=== PATIENT | female | born 1940 | race Caucasian/White ===

== ENCOUNTER → 2016-05-31 | Outpatient (CLI) | payer MEDICARE, OTHER ==
--- NOTE | 2016-05-31 14:27 | MM ---
Reason for exam: clinical finding. Last mammogram was performed 3 years and 7 months ago. History: Family history of breast cancer in sister at age 72. Indicated problem(s): pain in both breasts. Physical Findings: Nurse did not find any significant physical abnormalities on exam. MG 3D Diag Mammo W/Cad AMRIK Bilateral CC and MLO view(s) were taken. Prior study comparison: November 06, 2012, mammogram, performed at [facility]. November 01, 2011, mammogram, performed at [facility]. There are scattered fibroglandular densities. Finding: There are typically benign round, linear calcifications in both breasts. There is no discrete abnormality. Right axillary pacemaker. These results were verbally communicated with the patient and result sheet given to the patient on 05/31/16. ASSESSMENT: Benign, BI-RAD 2 RECOMMENDATION: Routine screening mammogram of both breasts in 1 year. Manage on a clinical basis with regard to pain.
== END | disposition home or self-care (01) ==
LOC: RADMAMWWP 13:11
PROVIDERS: ATTEND Family Medicine
DX: N63 Unspecified lump in breast (principal)
CPT/HCPCS: G0204; G0279

== ENCOUNTER 2016-06-23 11:16 | Inpatient (IN) | payer MEDICARE, OTHER ==
--- NOTE | 2016-06-23 12:01 | ED ---
General Adult HPI - General Chief complaint: Chest Pain Stated complaint: CHEST PAIN, NUMBNESS Time Seen by Provider: 06/23/16 11:34 Source: patient, RN notes reviewed, old records reviewed Mode of arrival: wheelchair Limitations: no limitations - History of Present Illness Initial comments: This is a 76-year-old female to the ER for evaluation of weakness, dehydration, anorexia, nausea and vomiting. Intractable nausea and vomiting with dehydration , patient has had a complex medical history including recent colon resection with ostomy, patient states she's had persistent diarrhea ever since, no fevers but has not been feeling well. Was recently placed on potassium supplements but states that has not helped - Related Data Home Medications Medication Instructions Recorded Confirmed Meclizine HCl [Antivert] 25 mg PO DAILY PRN 10/21/14 01/16/16 Memantine [Namenda] 10 mg PO BID 10/21/14 06/23/16 Nitroglycerin Sl Tabs [Nitrostat] 0.4 mg SUBLINGUAL Q5M PRN 10/21/14 06/23/16 Omeprazole 20 mg PO DAILY 10/21/14 06/23/16 Aspirin [Adult Low Dose Aspirin EC] 81 mg PO DAILY 02/12/15 06/23/16 Docusate [Colace] 100 mg PO BID PRN 09/09/15 06/23/16 Citalopram Hydrobromide [CeleXA] 20 mg PO HS 12/15/15 06/23/16 Donepezil [Aricept] 10 mg PO HS 12/15/15 06/23/16 Levothyroxine Sodium [Synthroid] 25 mcg PO DAILY 12/15/15 06/23/16 Meloxicam [Mobic] 15 mg PO DAILY 12/15/15 01/16/16 ALPRAZolam [Xanax] 0.5 mg PO BID 06/23/16 06/23/16 Potassium Chloride [Klor-Con 20] 20 meq PO DAILY 06/23/16 06/23/16 Previous Rx's Medication Instructions Recorded Pregabalin [Lyrica] 200 mg PO BID #30 capsule 02/17/15 Atorvastatin [Lipitor] 40 mg PO HS #30 tab 01/18/16 Metoprolol Tartrate [Lopressor] 25 mg PO BID #60 tab 01/18/16 amLODIPine [Norvasc] 5 mg PO BID #60 tab 01/18/16 Allergies Allergy/AdvReac Type Severity Reaction Status Date / Time adhesive Allergy Rash/Hives Verified 06/23/16 11:21 fish derived Allergy Swelling Verified 06/23/16 11:21 Iodinated Contrast Media - Allergy Swelling Verified 06/23/16 11:21 Oral and [Iodinated Contrast Media - IV Dye] codeine AdvReac Nausea & Verified 06/23/16 11:21 Vomiting morphine AdvReac Nausea & Verified 06/23/16 11:21 Vomiting Review of Systems ROS Statement: Those systems with pertinent positive or pertinent negative responses have been documented in the HPI. ROS Other: All systems not noted in ROS Statement are negative. Past Medical History Past Medical History: Coronary Artery Disease (CAD), Chest Pain / Angina, CVA/ TIA, GERD/Reflux, Hyperlipidemia, Hypertension, Myocardial Infarction (PA), Osteoarthritis (OA), Thyroid Disorder Additional Past Medical History / Comment(s): Pt had a recent admission to [facility] on 12/15/15 with N/V for 4 days/dehydration/low potassium/low calcium/low magnesium. Other HX: SICK SINUS/ATRIAL FIB. 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 Last Myocardial Infarction Date:: 1999 History of Any Multi-Drug Resistant Organisms: None Reported Past Surgical History: Back Surgery, Bowel Resection, Heart Catheterization, Hysterectomy, Joint Replacement, Orthopedic Surgery, Pacemaker Additional Past Surgical History / Comment(s): 10/29/14 Total R hip arthroplasty , ORIF L hip, BILAERAL KNEE SCOPES, BILATERAL SHOULDER SURGERY, multiple back surgeries, gastric stapling. Past Anesthesia/Blood Transfusion Reactions: Postoperative Nausea & Vomiting ( PONV) Type of Cardiac Device: Permanent Pacemaker Device Placement Date:: Past Psychological History: Depression Additional Psychological History / Comment(s): Pt lives alone at [place]. She uses a walker on occasion and has an electric wheelchair if she feels she needs it. She drives. She has had [facility] home care in the past. Smoking Status: Current some day smoker Past Alcohol Use History: None Reported Additional Past Alcohol Use History / Comment(s): ONCE IN A WHILE WILL TAKE A PUFF OR TWO WHEN WITH FRIENDS. Past Drug Use History: None Reported - Past Family History Father Family Medical History: Cancer Mother Family Medical History: Coronary Artery Disease (CAD) General Exam Limitations: no limitations General appearance: alert, in no apparent distress Head exam: Present: atraumatic, normocephalic, normal inspection Eye exam: Present: normal appearance, PERRL, EOMI. Absent: scleral icterus, conjunctival injection, periorbital swelling ENT exam: Present: normal exam, mucous membranes moist Neck exam: Present: normal inspection. Absent: tenderness, meningismus, lymphadenopathy Respiratory exam: Present: normal lung sounds bilaterally. Absent: respiratory distress, wheezes, rales, rhonchi, stridor Cardiovascular Exam: Present: regular rate, normal rhythm, normal heart sounds. Absent: systolic murmur, diastolic murmur, rubs, gallop, clicks GI/Abdominal exam: Present: soft, normal bowel sounds. Absent: distended, tenderness, guarding, rebound, rigid Extremities exam: Present: normal inspection, full ROM, normal capillary refill. Absent: tenderness, pedal edema, joint swelling, calf tenderness Back exam: Present: normal inspection Neurological exam: Present: alert, oriented X3, CN II-XII intact Psychiatric exam: Present: normal affect, normal mood Skin exam: Present: warm, dry, intact, normal color. Absent: rash Course Vital Signs 06/23/16 06/23/16 11:18 11:50 Temperature 97.4 F L Pulse Rate 61 Respiratory 16 Rate Blood Pressure 124/60 O2 Sat by Pulse 95 99 Oximetry - Reevaluation(s) Reevaluation #1: 06/23/16 13:25 Patient still feeling weak with occasional active vomiting EKG Findings - EKG Comments: EKG Findings:: EKG shows a paced rhythm rate of 89, TN 166, QRS 474 Medical Decision Making - Medical Decision Making 76 female here with intractable nausea vomiting, severe protein calorie malnutrition, severe hypomagnesemia, low-sodium despite soy replacement, patient be admitted for surgical evaluation, monitoring of intake. Monitoring of electrolytes - Lab Data Result diagrams: 06/23/16 12:12 06/23/16 12:12 Lab Results 06/23/16 06/23/1606/23/17 Range/Units 12:12 12:12 12:12 WBC 9.4 (3.8-10.6) k/uL RBC 4.39 (3.80-5.40) m/uL Hgb 12.4 (11.4-16.0) gm/dL Hct 38.3 (34.0-46.0) % MCV 87.2 (80.0-100.0) fL MCH 28.2 (25.0-35.0) pg MCHC 32.3 (31.0-37.0) g/dL RDW 16.5 H (11.5-15.5) % Plt Count 251 (150-450) k/uL Neutrophils % 66 % Lymphocytes % 25 % Monocytes % 6 % Eosinophils % 2 % Basophils % 1 % Neutrophils # 6.2 (1.3-7.7) k/uL Lymphocytes # 2.4 (1.0-4.8) k/uL Monocytes # 0.5 (0-1.0) k/uL Eosinophils # 0.2 (0-0.7) k/uL Basophils # 0.1 (0-0.2) k/uL Hypochromasia Slight Anisocytosis Slight PT (9.0-12.0) sec INR (<1.1) APTT (22.0-30.0) sec Sodium 144 (137-145) mmol/L Potassium 3.7 (3.5-5.1) mmol/L Chloride 113 H (98-107) mmol/L Carbon Dioxide 17 L (22-30) mmol/L Anion Gap 14 mmol/L BUN 9 (7-17) mg/dL Creatinine 0.70 (0.52-1.04) mg/dL Est GFR (MDRD) Af Amer >60 (>60 ml/min/1.73 sqM) Est GFR (MDRD) Non-Af >60 (>60 ml/min/1.73 sqM) Glucose 102 H (74-99) mg/dL Calcium 6.4 L* (8.4-10.2) mg/dL Phosphorus (2.5-4.5) mg/dL Magnesium <0.4 L* (1.6-2.3) mg/dL Total Bilirubin 0.6 (0.2-1.3) mg/dL AST 25 (14-36) U/L ALT 20 (9-52) U/L Alkaline Phosphatase 70 (38-126) U/L Total Creatine Kinase 253 H (30-135) U/L CK-MB (CK-2) 2.5 H* (0.0-2.4) ng/mL CK-MB (CK-2) Rel Index 1.0 Troponin I <0.012 (0.000-0.034) ng/mL Total Protein 6.6 (6.3-8.2) g/dL Albumin 3.6 (3.5-5.0) g/dL Lipase 77 (23-300) U/L 06/23/16 06/23/16 Range/Units 12:12 12:12 WBC (3.8-10.6) k/uL RBC (3.80-5.40) m/uL Hgb (11.4-16.0) gm/dL Hct (34.0-46.0) % MCV (80.0-100.0) fL MCH (25.0-35.0) pg MCHC (31.0-37.0) g/dL RDW (11.5-15.5) % Plt Count (150-450) k/uL Neutrophils % % Lymphocytes % % Monocytes % % Eosinophils % % Basophils % % Neutrophils # (1.3-7.7) k/uL Lymphocytes # (1.0-4.8) k/uL Monocytes # (0-1.0) k/uL Eosinophils # (0-0.7) k/uL Basophils # (0-0.2) k/uL Hypochromasia Anisocytosis PT 12.5 H (9.0-12.0) sec INR 1.3 (<1.1) APTT 24.4 (22.0-30.0) sec Sodium (137-145) mmol/L Potassium (3.5-5.1) mmol/L Chloride (98-107) mmol/L Carbon Dioxide (22-30) mmol/L Anion Gap mmol/L BUN (7-17) mg/dL Creatinine (0.52-1.04) mg/dL Est GFR (MDRD) Af Amer (>60 ml/min/1.73 sqM) Est GFR (MDRD) Non-Af (>60 ml/min/1.73 sqM) Glucose (74-99) mg/dL Calcium (8.4-10.2) mg/dL Phosphorus 4.2 (2.5-4.5) mg/dL Magnesium (1.6-2.3) mg/dL Total Bilirubin (0.2-1.3) mg/dL AST (14-36) U/L ALT (9-52) U/L Alkaline Phosphatase (38-126) U/L Total Creatine Kinase (30-135) U/L CK-MB (CK-2) (0.0-2.4) ng/mL CK-MB (CK-2) Rel Index Troponin I (0.000-0.034) ng/mL Total Protein (6.3-8.2) g/dL Albumin (3.5-5.0) g/dL Lipase (23-300) U/L Disposition Clinical Impression: Dehydration, Hypomagnesemia, Weakness Disposition: ADMITTED IP TO THIS [facility] Condition: Fair Referrals: Geraldo Santiago DO [Primary Care Provider] - 1-2 days
[2016-06-23 12:36] LABS: ALT 20 U/L (9-52); AST 25 U/L (14-36); Alkaline Phosphatase 70 U/L (38-126); Anion Gap 14 mmol/L; Blood Urea Nitrogen 9 mg/dL (7-17); Carbon Dioxide 17 mmol/L (22-30); Chloride 113 mmol/L (98-107); Glucose 102 mg/dL (74-99); Non-African American GFR(MDRD) >60 (>60 ml/min/1.73 sqM); Potassium 3.7 mmol/L (3.5-5.1); Sodium 144 mmol/L (137-145); Total Bilirubin 0.6 mg/dL (0.2-1.3); Total Protein 6.6 g/dL (6.3-8.2)
[2016-06-23] MEDS ORDERED: PANTOPRAZOLE 40 MG/10 ML VIAL IVP STA (12:38)
[2016-06-23] MEDS ORDERED: DICYCLOMINE 10 MG/ML 2 ML AMP IM STA (12:38)
[2016-06-23] MEDS ORDERED: ONDANSETRON 4 MG/2 ML VIAL IVP STA (12:38)
[2016-06-23 12:45] LABS: Creatine Kinase 253 U/L (30-135)
[2016-06-23 12:52] LABS: INR 1.3 (<1.1); Partial Thromboplastin Time 24.4 sec (22.0-30.0); Prothrombin Time 12.5 sec (9.0-12.0)
[2016-06-23 12:57] LABS: Anisocytosis Slight; Basophils # (A) 0.1 k/uL (0-0.2); Basophils % (A) 1 %; CH 27.6; CHCM 31.8; Eosinophils # (A) 0.2 k/uL (0-0.7); Eosinophils % (A) 2 %; HCT 38.3 % (34.0-46.0); HDW 2.91; HGB 12.4 gm/dL (11.4-16.0); Hypochromasia Slight; Luc # (Auto) 0.13; Luc % (Auto) 1; Lymphocytes # (A) 2.4 k/uL (1.0-4.8); Lymphocytes % (A) 25 %; MCH 28.2 pg (25.0-35.0); MCHC 32.3 g/dL (31.0-37.0); MCV 87.2 fL (80.0-100.0); Monocytes # (A) 0.5 k/uL (0-1.0); Monocytes % (A) 6 %; Neutrophils # (A) 6.2 k/uL (1.3-7.7); Neutrophils % (A) 66 %; RBC 4.39 m/uL (3.80-5.40); RDW 16.5 % (11.5-15.5); WBC 9.4 k/uL (3.8-10.6); WBC (Perox) 9.42
[2016-06-23 12:58] LABS: Troponin I <0.012 ng/mL (0.000-0.034)
[2016-06-23 13:04] LABS: Calcium 6.4 mg/dL (8.4-10.2)
[2016-06-23 13:05] LABS: Magnesium <0.4 mg/dL (1.6-2.3)
[2016-06-23 13:09] LABS: Creatine Kinase MB 2.5 ng/mL (0.0-2.4)
[2016-06-23] MEDS ORDERED: SODIUM CHLORIDE 0.9% 1,000 ML IV ONE (13:23)
--- NOTE | 2016-06-23 13:25 | XR ---
EXAMINATION TYPE: XR abdomen acute w cxr DATE OF EXAM: 06/23/2016 12:55 PM COMPARISON: NONE HISTORY: Nausea vomiting upper abdominal pain TECHNIQUE: Abdomen is examined with a frontal chest upright and supine views abdomen. This compared w [facility] 01/16/2016 FINDINGS: Pacemaker overlies the right chest. Heart size is normal. Pulmonary vasculature is normal. Lungs are clear. No free air is under the diaphragm Postsurgical changes are in the epigastric region. Postsurgical changes are within the lower lumbar s pine Normal colonic bowel gas is present. Right hip prosthesis is present. IMPRESSION: 1. No acute process.
[2016-06-23] MEDS: MAGNESIUM SULFATE-D5W PMX 1 GM in DEXTROSE/WATER 1 100ML.BAG IVPB SCH ×4 (13:40→18:39)
[2016-06-23] MEDS ORDERED: MECLIZINE 25 MG TAB PO PRN (17:20)
[2016-06-23] MEDS ORDERED: NITROGLYCERIN SL TABS 0.4 MG TAB SUBLINGUAL PRN (17:26)
[2016-06-23] MEDS: ONDANSETRON 4 MG/2 ML VIAL IVP PRN (18:49)
[2016-06-23] MEDS: amLODIPine 5 MG TAB PO SCH (20:43)
[2016-06-23] MEDS: METOPROLOL TARTRATE 25 MG TAB PO SCH (20:44)
[2016-06-23] MEDS: ATORVASTATIN 40 MG TAB PO SCH (20:44)
[2016-06-23] MEDS: PREGABALIN 100 MG CAP PO SCH (20:44)
[2016-06-23] MEDS: MEMANTINE 10 MG TAB PO SCH (20:44)
[2016-06-23] MEDS: DONEPEZIL 10 MG TAB PO SCH (20:44)
[2016-06-23] MEDS: ALPRAZolam 0.5 MG TAB PO PRN (23:48)
[2016-06-24] MEDS ORDERED: Magnesium Replacement Protocol 1 EACH MISC MISCELLANE PRN ×2 (06:05→08:45)
[2016-06-24 06:24] LABS: Anisocytosis Slight; Basophils # (A) 0.1 k/uL (0-0.2); Basophils % (A) 1 %; CH 27.2; CHCM 30.4; Eosinophils # (A) 0.3 k/uL (0-0.7); Eosinophils % (A) 5 %; HCT 33.2 % (34.0-46.0); HGB 10.4 gm/dL (11.4-16.0); Hypochromasia Moderate; Luc # (Auto) 0.13; Luc % (Auto) 2; Lymphocytes # (A) 1.6 k/uL (1.0-4.8); Lymphocytes % (A) 28 %; MCHC 31.2 g/dL (31.0-37.0); MCV 89.8 fL (80.0-100.0); Mean Platelet Volume 7.3; Monocytes # (A) 0.3 k/uL (0-1.0); Monocytes % (A) 5 %; Neutrophils # (A) 3.5 k/uL (1.3-7.7); Neutrophils % (A) 59 %; RDW 16.7 % (11.5-15.5); WBC 5.9 k/uL (3.8-10.6); WBC (Perox) 5.98
[2016-06-24] MEDS: LEVOTHYROXINE 25 MCG TAB PO SCH (06:29)
[2016-06-24] MEDS: PANTOPRAZOLE 40 MG TABLET PO SCH (06:29)
[2016-06-24 06:36] LABS: ALT 17 U/L (9-52); AST 18 U/L (14-36); Alkaline Phosphatase 81 U/L (38-126); Anion Gap 10 mmol/L; Blood Urea Nitrogen 7 mg/dL (7-17); Carbon Dioxide 19 mmol/L (22-30); Chloride 113 mmol/L (98-107); Glucose 92 mg/dL (74-99); Magnesium 1.5 mg/dL (1.6-2.3); Non-African American GFR(MDRD) >60 (>60 ml/min/1.73 sqM); Phosphorous 3.1 mg/dL (2.5-4.5); Potassium 3.4 mmol/L (3.5-5.1); Sodium 142 mmol/L (137-145); Total Bilirubin 0.6 mg/dL (0.2-1.3); Total Protein 5.8 g/dL (6.3-8.2)
[2016-06-24 06:51] LABS: Calcium 6.5 mg/dL (8.4-10.2)
[2016-06-24] MEDS: MAGNESIUM SULFATE-D5W PMX 1 GM in DEXTROSE/WATER 1 100ML.BAG IVPB SCH ×4 (06:58→16:38)
[2016-06-24] MEDS: ONDANSETRON 4 MG/2 ML VIAL IVP PRN ×2 (09:04→14:01)
[2016-06-24] MEDS: MEMANTINE 10 MG TAB PO SCH ×2 (12:02→20:32)
[2016-06-24] MEDS: MELOXICAM 7.5 MG TAB PO SCH (12:02)
[2016-06-24] MEDS: amLODIPine 5 MG TAB PO SCH ×2 (12:03→20:32)
[2016-06-24] MEDS: METOPROLOL TARTRATE 25 MG TAB PO SCH ×2 (12:03→20:32)
[2016-06-24] MEDS: POTASSIUM CHLORIDE ER 20 MEQ TAB.ER PO SCH (12:03)
[2016-06-24] MEDS: ASPIRIN 81 MG CHEW PO SCH (12:04)
[2016-06-24] MEDS: PREGABALIN 100 MG CAP PO SCH ×2 (12:08→20:34)
[2016-06-24] MEDS: CALCIUM CARB-VIT D 500MG-200UN 1 EACH TAB PO SCH ×2 (12:14→16:40)
--- NOTE | 2016-06-24 12:57 | P.HPIM ---
History of Present Illness H&P Date: 06/24/16 Chief Complaint: Chest pain Patient is a 75-year-old female, patient of Dr. Geraldo Santiago in outpatient setting, with past medical history significant for coronary artery disease, CVA, GERD, hyperlipidemia, hypertension, myocardial infarction, osteoarthritis, sick sinus rhythm status post permanent pacemaker, hypothyroidism, and recent colon resection in March by Dr. Velasco. Patient presented to the emergency department with complaints of intractable nausea, vomiting and diarrhea. No history of fevers. Per patient, symptoms have been present since she had her colon resection. Patient reports weight loss. Abdominal x-ray with no evidence of acute process. Admission labs with evidence of severe hypomagnesemia and dehydration. Patient was admitted to the selective care unit for electrolyte replacement and IV hydration. Consult was requested for Dr. Velasco for general surgery. Upon examination, patient reports mild abdominal pain. Patient states she vomited this morning after she ate half a pancake. Patient reports 2 episodes of light brown loose stool this morning. Currently denies chest pain. 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 Last Myocardial Infarction Date:: 1999 History of Any Multi-Drug Resistant Organisms: None Reported Past Surgical History: Back Surgery, Bariatric Surgery, Bowel Resection, Cholecystectomy, Heart Catheterization, Hysterectomy, Joint Replacement, Orthopedic Surgery, Pacemaker Additional Past Surgical History / Comment(s): 10/29/14 Total R hip arthroplasty , ORIF L hip, BILATERAL KNEE SCOPES, BILATERAL SHOULDER SURGERY, multiple back surgeries, gastric stapling, 01/2016 cardiac cath-normal. Past Anesthesia/Blood Transfusion Reactions: Postoperative Nausea & Vomiting ( PONV) Type of Cardiac Device: Permanent Pacemaker Device Placement Date:: Past Psychological History: Depression Additional Psychological History / Comment(s): Pt lives alone at [place]. She uses a walker on occasion and has an electric wheelchair if she feels she needs it. She drives. She has had [facility] home care in the past. Her grandson , Pankaj assists her and manages her medications. Smoking Status: Light tobacco smoker Past Alcohol Use History: None Reported Additional Past Alcohol Use History / Comment(s): ONCE IN A WHILE WILL TAKE A PUFF OR TWO WHEN WITH FRIENDS. Past Drug Use History: None Reported - Past Family History Father Family Medical History: Cancer Additional Family Medical History / Comment(s): Father had sarcoma. He at the age of 70yrs. Mother Family Medical History: Coronary Artery Disease (CAD) Additional Family Medical History / Comment(s): Mother at the age of 81 yrs. Medications and Allergies Home Medications Medication Instructions Recorded Confirmed Type Meclizine HCl [Antivert] 25 mg PO DAILY PRN 10/21/14 06/23/16 History Memantine [Namenda] 10 mg PO BID 10/21/14 06/23/16 History Nitroglycerin Sl Tabs [Nitrostat] 0.4 mg SUBLINGUAL Q5M PRN 10/21/14 06/23/16 History Omeprazole 20 mg PO DAILY 10/21/14 06/23/16 History Aspirin [Adult Low Dose Aspirin EC] 81 mg PO DAILY 02/12/15 06/23/16 History Docusate [Colace] 100 mg PO BID PRN 09/09/15 06/23/16 History Donepezil [Aricept] 10 mg PO HS 12/15/15 06/23/16 History Levothyroxine Sodium [Synthroid] 25 mcg PO DAILY 12/15/15 06/23/16 History Meloxicam [Mobic] 15 mg PO DAILY 12/15/15 01/16/16 History ALPRAZolam [Xanax] 0.5 mg PO BID 06/23/16 06/23/16 History Potassium Chloride [Klor-Con 20] 20 meq PO DAILY 06/23/16 06/23/16 History Allergies Allergy/AdvReac Type Severity Reaction Status Date / Time adhesive Allergy Rash/Hives Verified 06/23/16 13:29 fish derived Allergy Swelling Verified 06/23/16 13:29 Iodinated Contrast Media - Allergy Swelling Verified 06/23/16 13:29 Oral and [Iodinated Contrast Media - IV Dye] codeine AdvReac Nausea & Verified 06/23/16 13:29 Vomiting morphine AdvReac Nausea & Verified 06/23/16 13:29 Vomiting Physical Exam Vitals: Vital Signs Temp Pulse Pulse Resp BP BP Pulse Ox 06/24/16 08:00 60 16 142/71 97 06/24/16 04:00 97.4 F L 62 18 101/60 97 06/24/16 00:00 98.4 F 64 18 128/64 97 06/23/16 20:00 98.1 F 62 18 112/66 99 06/23/16 16:00 97.6 F 62 18 116/63 98 06/23/16 13:30 87 20 130/87 97 06/23/16 13:20 60 16 137/77 98 Intake and Output 06/23/16 06/24/16 06/24/16 22:59 06:59 14:59 Intake Total 400 360 Balance 400 360 Intake: IV 400 Sodium Chloride 0.9% 1, 400 000 ml @ 100 mls/hr IV . Q10H ONE Rx#:[id number] Oral 360 Other: Voiding Method Diaper Diaper Diaper # Voids 2 1 Weight 66.2 kg 66.2 kg Patient Weight 06/25/16 06:59 Weight 66.2 kg GENERAL: Pt awake and alert, nontoxic, in no acute distress. HEAD: Atraumatic, normocephalic. EYES: Pupils equal, round, and reactive to light, extraocular movements intact, sclera anicteric, conjunctiva are normal. ENT: Moist mucous membranes. NECK:Supple without lymphadenopathy or JVD. LUNGS: Breath sounds clear to auscultation bilaterally. No wheezes, rales, or rhonchi. HEART: Heart S1, S2, no S3 or S4. Regular rate and rhythm. No murmurs, rubs or gallops. ABDOMEN: Soft, mild diffuse tenderness, mildly distended, normoactive bowel sounds. No guarding, no rebound. EXTREMITIES: 2+ peripheral pulses. No edema. No calf tenderness. NEUROLOGICAL: Pt oriented x 3. Cranial nerves II through XII grossly intact. Strength and sensation grossly intact. PSYCH: Normal mood, normal affect. SKIN: Warm, dry, intact. Normal turgor. No rashes or lesions. Results CBC & Chem 7: 06/24/16 06:02 06/24/16 06:02 Labs: Abnormal Lab Results - Last 24 Hours (Table) 06/23/16 06/23/16 06/23/16 Range/Units 12:12 12:12 12:12 RBC (3.80-5.40) m/uL Hgb (11.4-16.0) gm/dL Hct (34.0-46.0) % RDW 16.5 H (11.5-15.5) % PT (9.0-12.0) sec Potassium (3.5-5.1) mmol/L Chloride 113 H (98-107) mmol/L Carbon Dioxide 17 L (22-30) mmol/L Glucose 102 H (74-99) mg/dL Calcium 6.4 L* (8.4-10.2) mg/dL Magnesium <0.4 L* (1.6-2.3) mg/dL Total Creatine Kinase 253 H (30-135) U/L CK-MB (CK-2) 2.5 H* (0.0-2.4) ng/mL Total Protein (6.3-8.2) g/dL Albumin (3.5-5.0) g/dL 06/23/16 06/24/16 06/24/16 Range/Units 12:12 06:02 06:02 RBC 3.70 L (3.80-5.40) m/uL Hgb 10.4 L (11.4-16.0) gm/dL Hct 33.2 L (34.0-46.0) % RDW 16.7 H (11.5-15.5) % PT 12.5 H (9.0-12.0) sec Potassium 3.4 L (3.5-5.1) mmol/L Chloride 113 H (98-107) mmol/L Carbon Dioxide 19 L (22-30) mmol/L Glucose (74-99) mg/dL Calcium 6.5 L* (8.4-10.2) mg/dL Magnesium 1.5 L (1.6-2.3) mg/dL Total Creatine Kinase (30-135) U/L CK-MB (CK-2) (0.0-2.4) ng/mL Total Protein 5.8 L (6.3-8.2) g/dL Albumin 2.9 L (3.5-5.0) g/dL Abdominal x-ray: report reviewed Thrombosis Risk Factor Assmnt - DVT/VTE Prophylaxis DVT/VTE Prophylaxis: Pharmacologic Prophylaxis ordered - Choose All That Apply Any of the Below Risk Factors Present?: Yes Other Risk Factors: Yes Each Risk Factor Represents 3 Points: Age 75 years or older Other congenital or acquired thrombophilia - If yes, enter type in comment: No Thrombosis Risk Factor Assessment Total Risk Factor Score: 3 Thrombosis Risk Factor Assessment Level: Moderate Risk Assessment and Plan Plan: Impression and plan: 1. Dehydration suspect secondary to intractable nausea, vomiting, and diarrhea with history of colon resection. 2. Severe hypomagnesemia, present on admission, improved. 4. Hypocalcemia, present on admission. 5. Hypertension. 6. Coronary artery disease. 7. GERD. 8. Hyperlipidemia. 9. Poly-osteoarthritis. 10. Hypothyroidism. 11. History of sick sinus syndrome and paroxysmal atrial fibrillation status post implantation of permanent pacemaker. 12. History of nicotine dependence. 13. Hypothyroidism. 14. History of dementia, onset unknown. 15. Severe protein calorie malnutrition. Continue to monitor patient. Continue IV hydration. Low fiber diet as tolerated. Replace electrolytes per protocol. Home medications of been reviewed and resumed. Continue GI and DVT prophylaxis. Increase activity as tolerated. Surgical consult for Dr. Velasco requested, recommendations pending. Consult dietitian for nutritional support. Repeat CBC, BMP, magnesium in a.m. The above impression and plan have been discussed and directed by Dr. Santiago. Norma GIBBONS acting as scribe for Dr. Santiago.
--- NOTE | 2016-06-24 13:10 | P.GSCN ---
History of Present Illness Consult date: 06/24/16 Reason for Consult: Nausea vomiting diarrhea Requesting physician: Geraldo Santiago History of present illness: The patient is well known to me. 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 Has also had a past history of gastrointestinal bypass for weight loss. Developed the diarrhea post surgery. Was the treated aggressively as an outpatient including antidiarrheal agents lots of fluids potassium supplements O both by Dr. Santiago and myself. She states over the last week and a half or so she's had nausea or vomiting and has taken and very little food. Been progressively losing weight. She presented to the emergency room and had evidence of dehydration. In view of continued symptoms dehydration she was admitted for further management. She states she has about 5 or 6 bowel movements a day. Not sure if she is used the antidiarrheal agents namely Lomotil on a regular basis. No blood per rectum. BUN and creatinine were normal on admission. Past history. As above. Gastrointestinal bypass. Right colectomy. Multiple back surgeries and fusions and hip and knee surgeries. History of coronary artery disease and OK angioplasties. He of TIAs memory degeneration. Also history of hypertension and arrhythmia status post post pacemaker insertion. History of GERD hypothyroidism depression. Anxiety disorder. Social history. Positive for smoking although she states now she smoked very little. Denies ethanol abuse. Family history well-documented. Systems review as above. Weight loss. Generalized weakness. Dizziness. No urinary symptoms. Some mild partial anal incontinence long-term. Lower extremity weakness and partial foot drop. ALLERGIES listed including adhesive morphine etc. On examination the patient is well-built well-nourished on the patient side at the 66.2 kg BMI of 25.1. Clinically seemed mildly dehydrated. Head and neck otherwise normal. No mass or lymphadenopathy. Heart regular rhythm no murmurs. Abdomen shows a well-healed midline and right transverse scars. Has what feels like a seroma in the midportion of the transverse scar in the right side. No mass or organomegaly no tenderness no guarding or rebound is noted. Laboratory studies reviewed. Hemoglobin is normal as is her WBC. Potassium is 3.4. Magnesium and calcium on the low side. Abdominal x-ray shows a nonspecific bowel gas pattern. No obstruction. No dilated loops of bowel. No free air. 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 Nausea vomiting of doubt obstructive with Normal abdominal films. Dehydration. Malnutrition with weight loss. Recommendation continue IV fluids. Low residue diet. May benefit from anti- diarrheal agent. We will obtain Upper GI small bowel series. We will continue to follow with you. Past Medical History Past Medical History: Coronary Artery Disease (CAD), Chest Pain / Angina, CVA/ TIA, GERD/Reflux, Hyperlipidemia, Hypertension, Myocardial Infarction (OK), Osteoarthritis (OA), Thyroid Disorder Additional Past Medical History / Comment(s): SICK SINUS/ATRIAL FIB, INCONTINENCE: BOWEL/BLADDER & DROP FOOT ON left FROM NERVE DAMAGE POST BACK SURGERY, CVA X 2 WITH alittle short term memory problem, neuropathy R foot, OK in 1999, hypothryroidism, UTI, bronchitis, generalized arthritis, R/L shoulder pain, low back pain, spinal stenosis, carries "dementia gene", L hip fracture with surgery, R ear infections. Last Myocardial Infarction Date:: 1999 History of Any Multi-Drug Resistant Organisms: None Reported Past Surgical History: Back Surgery, Bariatric Surgery, Bowel Resection, Cholecystectomy, Heart Catheterization, Hysterectomy, Joint Replacement, Orthopedic Surgery, Pacemaker Additional Past Surgical History / Comment(s): 10/29/14 Total R hip arthroplasty , ORIF L hip, BILATERAL KNEE SCOPES, BILATERAL SHOULDER SURGERY, multiple back surgeries, gastric stapling, 01/2016 cardiac cath-normal. Past Anesthesia/Blood Transfusion Reactions: Postoperative Nausea & Vomiting ( PONV) Type of Cardiac Device: Permanent Pacemaker Device Placement Date:: Past Psychological History: Depression Additional Psychological History / Comment(s): Pt lives alone at [place]. She uses a walker on occasion and has an electric wheelchair if she feels she needs it. She drives. She has had [facility] home care in the past. Her grandson , Pankaj assists her and manages her medications. Smoking Status: Light tobacco smoker Past Alcohol Use History: None Reported Additional Past Alcohol Use History / Comment(s): ONCE IN A WHILE WILL TAKE A PUFF OR TWO WHEN WITH FRIENDS. Past Drug Use History: None Reported - Past Family History Father Family Medical History: Cancer Additional Family Medical History / Comment(s): Father had sarcoma. He at the age of 70yrs. Mother Family Medical History: Coronary Artery Disease (CAD) Additional Family Medical History / Comment(s): Mother at the age of 81 yrs. Medications and Allergies Home Medications Medication Instructions Recorded Confirmed Type Meclizine HCl [Antivert] 25 mg PO DAILY PRN 10/21/14 06/23/16 History Memantine [Namenda] 10 mg PO BID 10/21/14 06/23/16 History Nitroglycerin Sl Tabs [Nitrostat] 0.4 mg SUBLINGUAL Q5M PRN 10/21/14 06/23/16 History Omeprazole 20 mg PO DAILY 10/21/14 06/23/16 History Aspirin [Adult Low Dose Aspirin EC] 81 mg PO DAILY 02/12/15 06/23/16 History Docusate [Colace] 100 mg PO BID PRN 09/09/15 06/23/16 History Donepezil [Aricept] 10 mg PO HS 12/15/15 06/23/16 History Levothyroxine Sodium [Synthroid] 25 mcg PO DAILY 12/15/15 06/23/16 History Meloxicam [Mobic] 15 mg PO DAILY 12/15/15 01/16/16 History ALPRAZolam [Xanax] 0.5 mg PO BID 06/23/16 06/23/16 History Potassium Chloride [Klor-Con 20] 20 meq PO DAILY 06/23/16 06/23/16 History Allergies Allergy/AdvReac Type Severity Reaction Status Date / Time adhesive Allergy Rash/Hives Verified 06/23/16 13:29 fish derived Allergy Swelling Verified 06/23/16 13:29 Iodinated Contrast Media - Allergy Swelling Verified 06/23/16 13:29 Oral and [Iodinated Contrast Media - IV Dye] codeine AdvReac Nausea & Verified 06/23/16 13:29 Vomiting morphine AdvReac Nausea & Verified 06/23/16 13:29 Vomiting Surgical - Exam Vital Signs Temp Pulse Ox 97.4 F L 95 06/23/16 11:18 06/23/16 11:18 Results - Labs 06/24/16 06:02 06/24/16 06:02 Abnormal Lab Results - Last 24 Hours (Table) 06/23/16 06/23/16 06/23/16 Range/Units 12:12 12:12 12:12 RBC (3.80-5.40) m/uL Hgb (11.4-16.0) gm/dL Hct (34.0-46.0) % RDW 16.5 H (11.5-15.5) % Potassium (3.5-5.1) mmol/L Chloride 113 H (98-107) mmol/L Carbon Dioxide 17 L (22-30) mmol/L Glucose 102 H (74-99) mg/dL Calcium 6.4 L* (8.4-10.2) mg/dL Magnesium <0.4 L* (1.6-2.3) mg/dL Total Creatine Kinase 253 H (30-135) U/L CK-MB (CK-2) 2.5 H* (0.0-2.4) ng/mL Total Protein (6.3-8.2) g/dL Albumin (3.5-5.0) g/dL 06/24/16 06/24/16 Range/Units 06:02 06:02 RBC 3.70 L (3.80-5.40) m/uL Hgb 10.4 L (11.4-16.0) gm/dL Hct 33.2 L (34.0-46.0) % RDW 16.7 H (11.5-15.5) % Potassium 3.4 L (3.5-5.1) mmol/L Chloride 113 H (98-107) mmol/L Carbon Dioxide 19 L (22-30) mmol/L Glucose (74-99) mg/dL Calcium 6.5 L* (8.4-10.2) mg/dL Magnesium 1.5 L (1.6-2.3) mg/dL Total Creatine Kinase (30-135) U/L CK-MB (CK-2) (0.0-2.4) ng/mL Total Protein 5.8 L (6.3-8.2) g/dL Albumin 2.9 L (3.5-5.0) g/dL Diabetes panel 06/23/16 06/24/16 Range/Units 12:12 06:02 Sodium 144 142 (137-145) mmol/L Potassium 3.7 3.4 L (3.5-5.1) mmol/L Chloride 113 H 113 H (98-107) mmol/L Carbon Dioxide 17 L 19 L (22-30) mmol/L BUN 9 7 (7-17) mg/dL Creatinine 0.70 0.66 (0.52-1.04) mg/dL Glucose 102 H 92 (74-99) mg/dL Calcium 6.4 L* 6.5 L* (8.4-10.2) mg/dL AST 25 18 (14-36) U/L ALT 20 17 (9-52) U/L Alkaline Phosphatase 70 81 (38-126) U/L Total Protein 6.6 5.8 L (6.3-8.2) g/dL Albumin 3.6 2.9 L (3.5-5.0) g/dL Calcium panel 06/23/16 06/23/16 06/24/16 Range/Units 12:12 12:12 06:02 Calcium 6.4 L* 6.5 L* (8.4-10.2) mg/dL Phosphorus 4.2 3.1 (2.5-4.5) mg/dL Albumin 3.6 2.9 L (3.5-5.0) g/dL Pituitary panel 06/23/16 06/24/16 Range/Units 12:12 06:02 Sodium 144 142 (137-145) mmol/L Potassium 3.7 3.4 L (3.5-5.1) mmol/L Chloride 113 H 113 H (98-107) mmol/L Carbon Dioxide 17 L 19 L (22-30) mmol/L BUN 9 7 (7-17) mg/dL Creatinine 0.70 0.66 (0.52-1.04) mg/dL Glucose 102 H 92 (74-99) mg/dL Calcium 6.4 L* 6.5 L* (8.4-10.2) mg/dL Adrenal panel 06/23/16 06/24/16 Range/Units 12:12 06:02 Sodium 144 142 (137-145) mmol/L Potassium 3.7 3.4 L (3.5-5.1) mmol/L Chloride 113 H 113 H (98-107) mmol/L Carbon Dioxide 17 L 19 L (22-30) mmol/L BUN 9 7 (7-17) mg/dL Creatinine 0.70 0.66 (0.52-1.04) mg/dL Glucose 102 H 92 (74-99) mg/dL Calcium 6.4 L* 6.5 L* (8.4-10.2) mg/dL Total Bilirubin 0.6 0.6 (0.2-1.3) mg/dL AST 25 18 (14-36) U/L ALT 20 17 (9-52) U/L Alkaline Phosphatase 70 81 (38-126) U/L Total Protein 6.6 5.8 L (6.3-8.2) g/dL Albumin 3.6 2.9 L (3.5-5.0) g/dL
[2016-06-24] MEDS: 0.9% NACL WITH KCL 20 MEQ/L 1,000 ML IV SCH (16:40)
[2016-06-24] MEDS: ENOXAPARIN 40 MG/0.4 ML SYRINGE SQ SCH (16:40)
[2016-06-24] MEDS: ATORVASTATIN 40 MG TAB PO SCH (20:32)
[2016-06-24] MEDS: DONEPEZIL 10 MG TAB PO SCH (20:32)
[2016-06-24] MEDS: ALPRAZolam 0.5 MG TAB PO PRN (23:48)
[2016-06-25] MEDS: 0.9% NACL WITH KCL 20 MEQ/L 1,000 ML IV SCH ×3 (04:06→23:05)
[2016-06-25 07:35] LABS: Anion Gap 7 mmol/L; Blood Urea Nitrogen 6 mg/dL (7-17); Calcium 7.9 mg/dL (8.4-10.2); Carbon Dioxide 20 mmol/L (22-30); Chloride 115 mmol/L (98-107); Glucose 81 mg/dL (74-99); Magnesium 1.7 mg/dL (1.6-2.3); Non-African American GFR(MDRD) >60 (>60 ml/min/1.73 sqM); Potassium 4.7 mmol/L (3.5-5.1); Sodium 142 mmol/L (137-145)
[2016-06-25 07:41] LABS: Anisocytosis Slight; Basophils % (A) 1 %; CH 27.4; CHCM 30.6; Eosinophils # (A) 0.3 k/uL (0-0.7); Eosinophils % (A) 6 %; HCT 34.9 % (34.0-46.0); HDW 2.82; HGB 11.2 gm/dL (11.4-16.0); Hypochromasia Moderate; Luc # (Auto) 0.11; Luc % (Auto) 2; Lymphocytes # (A) 1.7 k/uL (1.0-4.8); Lymphocytes % (A) 33 %; MCH 28.8 pg (25.0-35.0); MCV 89.7 fL (80.0-100.0); Mean Platelet Volume 8.5; Monocytes # (A) 0.3 k/uL (0-1.0); Monocytes % (A) 5 %; Neutrophils # (A) 2.7 k/uL (1.3-7.7); Neutrophils % (A) 54 %; RBC 3.89 m/uL (3.80-5.40); RDW 16.6 % (11.5-15.5); WBC 5.1 k/uL (3.8-10.6); WBC (Perox) 4.92
[2016-06-25] MEDS ORDERED: Magnesium Replacement Protocol 1 EACH MISC MISCELLANE PRN (08:21)
--- NOTE | 2016-06-25 11:32 | P.PN ---
Progress Note - Text The patient states she continues to have diarrhea. She states the pain was very frequent yesterday and last night. She was cut back from upper GI small bowel series. Did have some vomiting last night as well. On examination the patient is awake alert in no acute distress. Hydration is good. Temperature is normal vitals are normal. Abdomen is soft with no tenderness no guarding or rebound. No mass or organomegaly noted. Electrolytes are back to normal. WBC is normal. And creatinine are normal. Upper GI was reviewed with the radiologist. Esophagus was somewhat dilated. Gastric anastomosis was visualized. Colon anastomosis was widely patent. No evidence of obstruction in the small bowel or colon. There is slow transit time from the esophagus into the stomach. Impression. May have some degree of esophageal dilatation may be secondary to a gastric bypass surgery. However no obvious obstruction. Does have a small hiatal hernia. Possible short-bowel syndrome from her prior surgeries. Recommendation. We will try her on small frequent meals. Soft diet. Continue Lomotil. Consider EGD.
--- NOTE | 2016-06-25 11:40 | FL ---
EXAMINATION: Double contrast upper GI with small bowel follow through DATE: 06/25/2016 COMPARISON: Correlation radiographs 06/23/2016 HISTORY: 76-year-old female with vomiting and diarrhea Total fluoroscopy time: 2 minutes 23 seconds. FINDINGS: Esophagus is slightly patulous. There is a small hiatal hernia demonstrated. There is restriction of the surgerized stomach causing prominent pooling of contrast up to the upper third esophageal level. There is gradual passage though with intermittent episodes of intraesophageal reflux. No discrete muc osal abnormality is seen. In regards to the stomach, there are postsurgical changes of vertical banded gastroplasty. The surgic al changes limits the amount of air that entered the stomach. Single contrast appearance of the stoma ch is grossly unremarkable, again, with satisfactory restriction at the site of banding. There is no evidence for dehiscence across the staple line. The duodenum is free of any persistent filling defect and demonstrate a normal mucosal pattern. Following administration of barium, serial films were carried out to 1 hour 30 minutes. Barium is see n to reach the colon at 1 hour. There are postsurgical changes of right hemicolectomy with a ileocolo darrel anastomosis at the right upper quadrant. This anastomosis is not well seen given high positioning behind the ribs limiting adequate compression to separate opacified bowel loops. Loops of jejunum and ileum are compressed and examined under fluoroscopy. The small bowel loops have a normal-caliber. Mucosal pattern is within normal limits. No intrinsic or extrinsic process is suspe cted. The initial linoleum floor installer image shows lumbar fusion hardware, right hip total arthroplasty, fixation at the p roximal left femur, and staple line at the right upper quadrant. Nonobstructive bowel gas pattern. IMPRESSION: 1. Slightly patulous esophagus with a small hiatal hernia and pooling of contrast into the esophagus secondary to the restrictive surgery on the stomach. There is gradual clearance of contrast from the esophagus but with intermittent bouts of intraesophageal reflux. 2. Status post vertical banded gastroplasty without evident abnormality. 3. Status post right hemicolectomy with a right upper quadrant ileocolonic anastomosis. The small bow el examination is otherwise unremarkable.
[2016-06-25] MEDS: CALCIUM CARB-VIT D 500MG-200UN 1 EACH TAB PO SCH ×3 (11:56→16:51)
[2016-06-25] MEDS: DIPHENOX-ATROP 2.5-0.025 MG 1 EACH TAB PO SCH ×4 (11:57→22:36)
[2016-06-25] MEDS: ENOXAPARIN 40 MG/0.4 ML SYRINGE SQ SCH (11:58)
[2016-06-25] MEDS: LEVOTHYROXINE 25 MCG TAB PO SCH (11:59)
[2016-06-25] MEDS: ASPIRIN 81 MG CHEW PO SCH (11:59)
[2016-06-25] MEDS: METOPROLOL TARTRATE 25 MG TAB PO SCH ×2 (11:59→22:36)
[2016-06-25] MEDS: MELOXICAM 7.5 MG TAB PO SCH (11:59)
[2016-06-25] MEDS: PANTOPRAZOLE 40 MG TABLET PO SCH (11:59)
[2016-06-25] MEDS: POTASSIUM CHLORIDE ER 20 MEQ TAB.ER PO SCH (11:59)
[2016-06-25] MEDS: PREGABALIN 100 MG CAP PO SCH ×3 (12:03→22:36)
[2016-06-25] MEDS: MEMANTINE 10 MG TAB PO SCH ×2 (12:04→22:36)
[2016-06-25] MEDS: amLODIPine 5 MG TAB PO SCH ×2 (12:04→22:35)
[2016-06-25] MEDS: MAGNESIUM SULFATE-D5W PMX 1 GM in DEXTROSE/WATER 1 100ML.BAG IVPB SCH ×2 (12:09→16:51)
--- NOTE | 2016-06-25 14:44 | P.PN ---
Subjective Patient is a 75-year-old female, patient of Dr. Geraldo Santiago in outpatient setting, with past medical history significant for coronary artery disease, CVA, GERD, hyperlipidemia, hypertension, myocardial infarction, osteoarthritis, sick sinus rhythm status post permanent pacemaker, hypothyroidism, and bariatric surgery, and recent right hemicolectomy. Patient presented to the emergency department with complaints of intractable nausea, vomiting and diarrhea. No history of fevers. Per patient, symptoms have been present since she had her colon resection. Patient reports weight loss. Abdominal x-ray with no evidence of acute process. Admission labs with evidence of severe hypomagnesemia and dehydration. Patient was admitted to the selective care unit for electrolyte replacement and IV hydration. Consult was requested for Dr. Velasco for general surgery. Patient was evaluated by Dr. Velasco and underwent an upper GI and small bowel x- ray on 06/25/2016 with evidence of mildly dilated esophagus possible secondary to gastric bypass surgery with no evidence of obstruction and evidence of small hiatal hernia. Recommendations per surgery to start patient on small frequent meals, soft diet, and continue Lomotil with consideration for EGD. Upon examination, patient reports improvement in nausea and abdominal pain. Patient did have loose stool last night. Denies shortness of breath chest pain. Afebrile. Magnesium improved to 1.7. Objective - Vital Signs Vital signs: Vital Signs Temp 98.0 F 06/25/16 00:00 Pulse 60 06/25/16 12:00 Resp 16 06/25/16 12:00 BP 137/75 06/25/16 12:00 Pulse Ox 93 L 06/25/16 12:00 Intake & Output 06/24/16 06/25/16 06/25/16 18:59 06:59 18:59 Intake Total 1140 500 240 Output Total 2 601 Balance 1138 -101 240 Weight 66.2 kg 65.3 kg Intake: Intake, IV Titration 500 Amount 0.9% NaCl with KCl 20 Meq 500 /l 1,000 ml @ 100 mls/hr IV .Q10H FANTASMA Rx#: [id number] Oral 1140 240 Output: Stool 2 301 Urine/Stool Mix 300 Other: Voiding Method Diaper Diaper # Voids 1 0 # Bowel Movements 3 - Exam GENERAL: Pt awake and alert, nontoxic, in no acute distress. HEAD: Atraumatic, normocephalic. EYES: Pupils equal, round, and reactive to light, extraocular movements intact, sclera anicteric, conjunctiva are normal. ENT: Moist mucous membranes. NECK:Supple without lymphadenopathy or JVD. LUNGS: Breath sounds clear to auscultation bilaterally. No wheezes, rales, or rhonchi. HEART: Heart S1, S2, no S3 or S4. Regular rate and rhythm. No murmurs, rubs or gallops. ABDOMEN: Soft, mild diffuse tenderness, mildly distended, normoactive bowel sounds. No guarding, no rebound. EXTREMITIES: 2+ peripheral pulses. No edema. No calf tenderness. NEUROLOGICAL: Pt oriented x 3. Cranial nerves II through XII grossly intact. Strength and sensation grossly intact. PSYCH: Normal mood, normal affect. SKIN: Warm, dry, intact. Normal turgor. No rashes or lesions. - Labs CBC & Chem 7: 06/25/16 06:51 06/25/16 06:51 Labs: Abnormal Lab Results - Last 24 Hours (Table) 06/25/16 06/25/16 Range/Units 06:51 06:51 Hgb 11.2 L (11.4-16.0) gm/dL RDW 16.6 H (11.5-15.5) % Chloride 115 H (98-107) mmol/L Carbon Dioxide 20 L (22-30) mmol/L BUN 6 L (7-17) mg/dL Calcium 7.9 L (8.4-10.2) mg/dL Assessment and Plan Plan: Impression and plan: 1. 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 2. Severe hypomagnesemia, present on admission, improved. 4. Hypocalcemia, present on admission, improved. 5. Hypertension. 6. Coronary artery disease. 7. GERD. 8. Hyperlipidemia. 9. Polyosteoarthritis. 10. Hypothyroidism. 11. History of sick sinus syndrome and paroxysmal atrial fibrillation status post implantation of permanent pacemaker. 12. History of nicotine dependence. 13. Hypothyroidism. 14. History of dementia, onset unknown. 15. Severe protein calorie malnutrition. 16. Possible esophageal dilatation secondary to gastric bypass surgery with no obvious obstruction. Patient may need EGD per general surgery. 17. Small hiatal hernia. Continue to monitor patient. Continue IV hydration. Soft diet as tolerated. Replace electrolytes per protocol. Continue current medications. Add Lomotil. Continue GI and DVT prophylaxis. Increase activity as tolerated. Continue to follow with surgical service. Repeat CBC, BMP, magnesium in a.m. The above impression and plan have been discussed and directed by Dr. Santiago. Norma GIBBONS acting as scribe for Dr. Santiago.
[2016-06-25] MEDS: ONDANSETRON 4 MG/2 ML VIAL IVP PRN (19:58)
[2016-06-25] MEDS: ALPRAZolam 0.5 MG TAB PO PRN (22:20)
[2016-06-25] MEDS: DONEPEZIL 10 MG TAB PO SCH (22:35)
[2016-06-25] MEDS: ATORVASTATIN 40 MG TAB PO SCH (22:35)
[2016-06-26] MEDS: ONDANSETRON 4 MG/2 ML VIAL IVP PRN ×2 (02:21→08:57)
[2016-06-26] MEDS: 0.9% NACL WITH KCL 20 MEQ/L 1,000 ML IV SCH ×2 (06:40→17:13)
[2016-06-26] MEDS: CALCIUM CARB-VIT D 500MG-200UN 1 EACH TAB PO SCH ×3 (06:48→17:15)
[2016-06-26] MEDS: PANTOPRAZOLE 40 MG TABLET PO SCH (06:49)
[2016-06-26] MEDS: LEVOTHYROXINE 25 MCG TAB PO SCH (06:50)
[2016-06-26 07:03] LABS: Anisocytosis Slight; Basophils # (A) 0.1 k/uL (0-0.2); Basophils % (A) 1 %; CHCM 30.1; Eosinophils # (A) 0.3 k/uL (0-0.7); Eosinophils % (A) 5 %; HCT 31.1 % (34.0-46.0); Hypochromasia Marked; Luc # (Auto) 0.16; Luc % (Auto) 3; Lymphocytes # (A) 1.8 k/uL (1.0-4.8); Lymphocytes % (A) 37 %; MCHC 31.2 g/dL (31.0-37.0); Mean Platelet Volume 8.1; Monocytes # (A) 0.2 k/uL (0-1.0); Monocytes % (A) 5 %; Neutrophils # (A) 2.4 k/uL (1.3-7.7); Neutrophils % (A) 49 %; RBC 3.45 m/uL (3.80-5.40); RDW 16.5 % (11.5-15.5); WBC 4.9 k/uL (3.8-10.6); WBC (Perox) 5.06
[2016-06-26 07:07] LABS: HGB 9.7 gm/dL (11.4-16.0)
[2016-06-26 08:14] LABS: Anion Gap 5 mmol/L; Blood Urea Nitrogen 5 mg/dL (7-17); Calcium 8.4 mg/dL (8.4-10.2); Carbon Dioxide 23 mmol/L (22-30); Chloride 113 mmol/L (98-107); Glucose 77 mg/dL (74-99); Magnesium 1.7 mg/dL (1.6-2.3); Non-African American GFR(MDRD) >60 (>60 ml/min/1.73 sqM); Potassium 4.8 mmol/L (3.5-5.1); Sodium 141 mmol/L (137-145)
[2016-06-26] MEDS: ENOXAPARIN 40 MG/0.4 ML SYRINGE SQ SCH (08:58)
--- NOTE | 2016-06-26 10:47 | P.PN ---
Subjective Principal diagnosis: Nausea vomiting Patient did have ongoing issues with vomiting and also diarrhea yesterday. She apparently had an upper endoscopy performed by Dr. Slaughter 2 months ago. I do not have that report available to me at this time. Denies any significant abdominal pain. Objective - Vital Signs Vital signs: Vital Signs Temp 97.8 F 06/26/16 04:00 Pulse 66 06/26/16 04:00 Resp 20 06/26/16 04:00 BP 140/65 06/26/16 04:00 Pulse Ox 99 06/26/16 04:00 Intake & Output 06/25/16 06/26/16 06/26/16 18:59 06:59 18:59 Intake Total 600 800 0 Output Total 50 Balance 600 750 0 Weight 68.7 kg Intake: IV 800 0.9% NaCl with KCl 20 Meq 800 /l 1,000 ml @ 100 mls/hr IV .Q10H [facility]ANTASMA Rx#: [id number] Oral 600 0 Output: Emesis 50 Other: Voiding Method Diaper Diaper # Voids 1 - Exam Abdomen: Soft, nontender, nondistended - Labs CBC & Chem 7: 06/26/16 06:24 06/26/16 06:24 Labs: Abnormal Lab Results - Last 24 Hours (Table) 06/26/16 06/26/16 Range/Units 06:24 06:24 RBC 3.45 L (3.80-5.40) m/uL Hgb 9.7 L D (11.4-16.0) gm/dL Hct 31.1 L (34.0-46.0) % RDW 16.5 H (11.5-15.5) % Chloride 113 H (98-107) mmol/L BUN 5 L (7-17) mg/dL Assessment and Plan (1) Nausea & vomiting Narrative/Plan: Continue diet as tolerated. Check stool cultures. Status: Acute
[2016-06-26] MEDS: ALPRAZolam 0.5 MG TAB PO PRN ×2 (13:18→23:14)
[2016-06-26] MEDS: DIPHENOX-ATROP 2.5-0.025 MG 1 EACH TAB PO SCH ×5 (13:18→23:20)
[2016-06-26] MEDS: MEMANTINE 10 MG TAB PO SCH ×2 (15:01→21:17)
[2016-06-26] MEDS: MELOXICAM 7.5 MG TAB PO SCH (15:01)
[2016-06-26] MEDS: amLODIPine 5 MG TAB PO SCH ×2 (15:01→21:17)
[2016-06-26] MEDS: ASPIRIN 81 MG CHEW PO SCH (15:01)
[2016-06-26] MEDS: POTASSIUM CHLORIDE ER 20 MEQ TAB.ER PO SCH (15:02)
[2016-06-26] MEDS: PREGABALIN 100 MG CAP PO SCH ×2 (15:02→21:17)
[2016-06-26] MEDS: METOPROLOL TARTRATE 25 MG TAB PO SCH ×2 (15:02→21:17)
--- NOTE | 2016-06-26 20:00 | PN ---
SUBJECTIVE DATA/ INTERVAL HISTORY: This is a 76 -year-old female admitted to the hospital with abnormal electrolytes from intractable nausea and vomiting. bowel movements were loose and watery. The patient states that she had colon carcinoma in situ and underwent a colectomy with end to end anastomosis. The patient today is seen in cross coverage for Dr. Santiago. States that he has not slept overnight. Denies having any headaches, blurred vision, chest pain, nausea and vomiting. The patient was noted to have significant hypomagnesemia on admission. appear to bedoing better. PHYSICAL EXAM: Includes vitals: Temperature 98, heart rate 62, blood pressure 140/65, respiratory rate 18. Saturating 98% on room air. PHYSICAL EXAM: Temperature is , heart rate is , respiration rate is per minute, blood pressure is and patient is saturating % on room air. GENERALLY: Patient appears to be alert, oriented x3. HEENT: The pupils are equal and reactive to light and accommodation. HEART: S1, S2 present. No murmur appreciated. LUNGS: Good air entry. No wheezing or rhonchi noted. ABDOMINAL EXAM: Soft, nontender, no organomegaly appreciated. GENITOURINARY: No Ramirez in place. EXTREMITIES: Pulses can be palpated distally. Denies any tenderness on gross palpation. SKIN: On a gross skin exam does not appear to have any purpura or any skin rashes that were noted. NEUROLOGICALLY: Grossly cranial nerves 2-12 intact. No motor or sensory deficits noted. LABORATORY DATA: Today includes hemoglobin 9.7, hematocrit 31, platelets 196, white count of 4.9. Sodium 141, potassium 4.1, chloride 113, bicarb 23, BUN 5, creatinine 0.58, magnesium 1.7, albumin of 2.9. ASSESSMENT: 1. Acute dehydration secondary to intractable nausea, vomiting, and diarrhea due to unknown etiology. 2. Severe hypomagnesemia. 3. Severe Hypokalemia. 4. Essential hypertension. 5. Hypothyroidism. 6. Gastroesophageal reflux disease. 7. Dementia. 8. ( ) status post right ( ). PLAN: Continue with current care. repeat labs C. dif toxin. Repeat laboratory data in the morning. The patient will be started on trazadone 50mg at bedtime . Continue with lomotil MTDD
[2016-06-26] MEDS: DONEPEZIL 10 MG TAB PO SCH (21:17)
[2016-06-26] MEDS: traZODone HCL 50 MG TAB PO SCH ×2 (21:17→23:14)
[2016-06-26] MEDS: ATORVASTATIN 40 MG TAB PO SCH (21:17)
[2016-06-27] MEDS: 0.9% NACL WITH KCL 20 MEQ/L 1,000 ML IV SCH ×3 (03:22→22:45)
[2016-06-27] MEDS: CALCIUM CARB-VIT D 500MG-200UN 1 EACH TAB PO SCH ×3 (06:51→18:02)
[2016-06-27] MEDS: PANTOPRAZOLE 40 MG TABLET PO SCH (06:51)
[2016-06-27] MEDS: LEVOTHYROXINE 25 MCG TAB PO SCH (06:51)
[2016-06-27 07:04] LABS: Anisocytosis Slight; Basophils % (A) 1 %; CH 27.2; CHCM 30.3; Eosinophils # (A) 0.3 k/uL (0-0.7); Eosinophils % (A) 6 %; HCT 32.8 % (34.0-46.0); HDW 2.82; Hypochromasia Marked; Luc # (Auto) 0.14; Luc % (Auto) 3; Lymphocytes % (A) 45 %; MCH 27.5 pg (25.0-35.0); MCHC 30.6 g/dL (31.0-37.0); Mean Platelet Volume 7.9; Monocytes # (A) 0.2 k/uL (0-1.0); Monocytes % (A) 5 %; Neutrophils # (A) 1.7 k/uL (1.3-7.7); Neutrophils % (A) 40 %; RBC 3.65 m/uL (3.80-5.40); RDW 16.6 % (11.5-15.5); WBC 4.3 k/uL (3.8-10.6); WBC (Perox) 4.45
[2016-06-27 07:22] LABS: ALT 20 U/L (9-52); AST 16 U/L (14-36); Alkaline Phosphatase 82 U/L (38-126); Anion Gap 5 mmol/L; Blood Urea Nitrogen 8 mg/dL (7-17); Calcium 8.7 mg/dL (8.4-10.2); Carbon Dioxide 24 mmol/L (22-30); Chloride 112 mmol/L (98-107); Glucose 76 mg/dL (74-99); Non-African American GFR(MDRD) >60 (>60 ml/min/1.73 sqM); Sodium 141 mmol/L (137-145); Total Bilirubin 0.4 mg/dL (0.2-1.3); Total Protein 5.4 g/dL (6.3-8.2)
[2016-06-27] MEDS: amLODIPine 5 MG TAB PO SCH ×2 (10:10→19:36)
[2016-06-27] MEDS: ASPIRIN 81 MG CHEW PO SCH (10:11)
[2016-06-27] MEDS: MELOXICAM 7.5 MG TAB PO SCH (10:11)
[2016-06-27] MEDS: ENOXAPARIN 40 MG/0.4 ML SYRINGE SQ SCH (10:11)
[2016-06-27] MEDS: DIPHENOX-ATROP 2.5-0.025 MG 1 EACH TAB PO SCH ×3 (10:11→18:01)
[2016-06-27] MEDS: METOPROLOL TARTRATE 25 MG TAB PO SCH ×2 (10:12→19:37)
[2016-06-27] MEDS: POTASSIUM CHLORIDE ER 20 MEQ TAB.ER PO SCH (10:12)
[2016-06-27] MEDS: MEMANTINE 10 MG TAB PO SCH ×2 (10:12→19:37)
[2016-06-27] MEDS: PREGABALIN 100 MG CAP PO SCH ×2 (10:14→19:39)
--- NOTE | 2016-06-27 11:18 | P.PN ---
Subjective Principal diagnosis: Nausea vomiting Patient seems to be doing better. No abdominal pain at this time. Diarrhea slightly improved. Objective - Vital Signs Vital signs: Vital Signs Temp 97.1 F L 06/27/16 10:19 Pulse 76 06/27/16 10:19 Resp 18 06/27/16 10:19 BP 138/60 06/27/16 10:19 Pulse Ox 96 06/27/16 10:19 Intake & Output 06/26/16 06/27/16 06/27/16 18:59 06:59 18:59 Intake Total 518 1780 200 Output Total 300 Balance 218 1780 200 Weight 70.1 kg Intake: IV 400 1300 0.9% NaCl with KCl 20 Meq 400 1300 /l 1,000 ml @ 100 mls/hr IV .Q10H FANTASMA Rx#: [id number] Oral 118 480 200 Output: Stool 300 Other: Voiding Method Diaper Diaper Toilet Diaper # Voids 1 # Bowel Movements 1 - Exam Abdomen: Soft, nontender, nondistended - Labs CBC & Chem 7: 06/27/16 06:28 06/27/16 06:28 Labs: Abnormal Lab Results - Last 24 Hours (Table) 06/27/16 06/27/16 Range/Units 06:28 06:28 RBC 3.65 L (3.80-5.40) m/uL Hgb 10.0 L (11.4-16.0) gm/dL Hct 32.8 L (34.0-46.0) % MCHC 30.6 L (31.0-37.0) g/dL RDW 16.6 H (11.5-15.5) % Chloride 112 H (98-107) mmol/L Total Protein 5.4 L (6.3-8.2) g/dL Albumin 2.8 L (3.5-5.0) g/dL Assessment and Plan (1) Nausea & vomiting Narrative/Plan: Continue diet as tolerated. Monitor the patient's symptoms of diarrhea and vomiting. Status: Acute
[2016-06-27] MEDS: ATORVASTATIN 40 MG TAB PO SCH (19:36)
[2016-06-27] MEDS: DONEPEZIL 10 MG TAB PO SCH (19:37)
[2016-06-27] MEDS: ONDANSETRON 4 MG/2 ML VIAL IVP PRN (19:39)
--- NOTE | 2016-06-27 19:43 | P.PN ---
Subjective SUBJECTIVE DATA/ INTERVAL HISTORY: This is a 76 -year-old female admitted to the hospital with abnormal electrolytes from intractable nausea and vomiting. bowel movements were loose and watery. The patient states that she had colon carcinoma in situ and underwent a colectomy with end to end anastomosis. The patient today is seen in cross coverage for Dr. Santiago. States that he has not slept overnight. Denies having any headaches, blurred vision, chest pain, nausea and vomiting. The patient was noted to have significant hypomagnesemia on admission. appear to bedoing better. 06/27/16 No bm today tolerating liquids no fevers, chills, n/v, diarrhea, abdominal pain, GENNARO PHYSICAL EXAM: Includes vitals: Temperature 98, heart rate 62, blood pressure 140/65, respiratory rate 18. Saturating 98% on room air. PHYSICAL EXAM: Temperature is , heart rate is , respiration rate is per minute, blood pressure is and patient is saturating % on room air. GENERALLY: Patient appears to be alert, oriented x3. HEENT: The pupils are equal and reactive to light and accommodation. HEART: S1, S2 present. No murmur appreciated. LUNGS: Good air entry. No wheezing or rhonchi noted. ABDOMINAL EXAM: Soft, nontender, no organomegaly appreciated. GENITOURINARY: No Ramirez in place. EXTREMITIES: Pulses can be palpated distally. Denies any tenderness on gross palpation. SKIN: On a gross skin exam does not appear to have any purpura or any skin rashes that were noted. NEUROLOGICALLY: Grossly cranial nerves 2-12 intact. No motor or sensory deficits noted. Objective - Vital Signs Vital signs: Vital Signs Temp 98.1 F 06/27/16 19:04 Pulse 69 06/27/16 19:04 Resp 16 06/27/16 19:04 BP 143/77 06/27/16 19:04 Pulse Ox 99 06/27/16 19:04 Intake & Output 06/27/16 06/27/16 06/28/16 06:59 18:59 06:59 Intake Total 1780 1200 Balance 1780 1200 Weight 70.1 kg Intake: IV 1300 1000 0.9% NaCl with KCl 20 Meq 1300 1000 /l 1,000 ml @ 100 mls/hr IV .Q10H FANTASMA Rx#: [id number] Oral 480 200 Other: Voiding Method Diaper Toilet Diaper # Voids 1 1 # Bowel Movements 1 - Labs CBC & Chem 7: 06/27/16 06:28 06/27/16 06:28 Labs: Abnormal Lab Results - Last 24 Hours (Table) 06/27/16 06/27/16 Range/Units 06:28 06:28 RBC 3.65 L (3.80-5.40) m/uL Hgb 10.0 L (11.4-16.0) gm/dL Hct 32.8 L (34.0-46.0) % MCHC 30.6 L (31.0-37.0) g/dL RDW 16.6 H (11.5-15.5) % Chloride 112 H (98-107) mmol/L Total Protein 5.4 L (6.3-8.2) g/dL Albumin 2.8 L (3.5-5.0) g/dL Assessment and Plan Plan: ASSESSMENT: 1. Acute dehydration secondary to intractable nausea, vomiting, and diarrhea due to unknown etiology. 2. Severe hypomagnesemia. 3. Severe Hypokalemia. 4. Essential hypertension. 5. Hypothyroidism. 6. Gastroesophageal reflux disease. 7. Dementia. 8. Colon cancer status post right hemicolectomy. PLAN: Continue with current care. repeat labs encourage oral intake likely can be discharged home lizzie C. dif toxin. if pt has loose stools Repeat laboratory data in the morning. trazadone 50mg at bedtime . Continue with lomotil
[2016-06-27] MEDS: ALPRAZolam 0.5 MG TAB PO PRN (19:50)
[2016-06-27] MEDS: traZODone HCL 50 MG TAB PO SCH (22:44)
[2016-06-28] MEDS: DIPHENOX-ATROP 2.5-0.025 MG 1 EACH TAB PO SCH ×4 (04:35→18:11)
[2016-06-28] MEDS: ONDANSETRON 4 MG/2 ML VIAL IVP PRN (08:00)
[2016-06-28] MEDS: 0.9% NACL WITH KCL 20 MEQ/L 1,000 ML IV SCH (08:00)
[2016-06-28 08:04] LABS: ALT 21 U/L (9-52); AST 19 U/L (14-36); Alkaline Phosphatase 72 U/L (38-126); Anion Gap 7 mmol/L; Blood Urea Nitrogen 8 mg/dL (7-17); Calcium 9.2 mg/dL (8.4-10.2); Carbon Dioxide 22 mmol/L (22-30); Chloride 112 mmol/L (98-107); Glucose 80 mg/dL (74-99); Magnesium 1.3 mg/dL (1.6-2.3); Non-African American GFR(MDRD) >60 (>60 ml/min/1.73 sqM); Potassium 5.2 mmol/L (3.5-5.1); Sodium 141 mmol/L (137-145); Total Bilirubin 0.5 mg/dL (0.2-1.3); Total Protein 5.6 g/dL (6.3-8.2)
[2016-06-28 09:57] VITALS: BMI 26.5
[2016-06-28] MEDS: PREGABALIN 100 MG CAP PO SCH ×2 (10:06→20:26)
[2016-06-28] MEDS: ASPIRIN 81 MG CHEW PO SCH (10:07)
[2016-06-28] MEDS: METOPROLOL TARTRATE 25 MG TAB PO SCH ×2 (10:07→20:27)
[2016-06-28] MEDS: POTASSIUM CHLORIDE ER 20 MEQ TAB.ER PO SCH (10:07)
[2016-06-28] MEDS: PANTOPRAZOLE 40 MG TABLET PO SCH (10:07)
[2016-06-28] MEDS: ENOXAPARIN 40 MG/0.4 ML SYRINGE SQ SCH (10:07)
[2016-06-28] MEDS: amLODIPine 5 MG TAB PO SCH ×2 (10:08→20:26)
[2016-06-28] MEDS: CALCIUM CARB-VIT D 500MG-200UN 1 EACH TAB PO SCH ×3 (10:08→18:11)
[2016-06-28] MEDS: LEVOTHYROXINE 25 MCG TAB PO SCH (10:08)
[2016-06-28] MEDS: MELOXICAM 7.5 MG TAB PO SCH (10:08)
[2016-06-28] MEDS: MEMANTINE 10 MG TAB PO SCH ×2 (10:09→20:26)
[2016-06-28] MEDS: MAGNESIUM SULFATE-D5W PMX 1 GM in DEXTROSE/WATER 1 100ML.BAG IVPB SCH ×2 (11:35→13:01)
[2016-06-28] MEDS ORDERED: Magnesium Replacement Protocol 1 EACH MISC MISCELLANE PRN (11:43)
[2016-06-28] MEDS ORDERED: MAGNESIUM SULFATE-D5W PMX 1 GM in DEXTROSE/WATER 1 100ML.BAG IVPB SCH (11:45)
--- NOTE | 2016-06-28 12:22 | P.PN ---
Progress Note - Text Patient has improved in terms of the diarrhea and that the it has mostly resolved. Last bowel movement was a day and a half ago. However she continues to have some vomiting. States she has not been able to keep down any solid food the last 24 hours. As keep down liquids. Taking an sure. Had a small amount of oatmeal this morning and half a hamburger last night but she states she threw them up. Denies any abdominal pain. On examination the patient is awake alert oriented in no distress. Temperature is normal. Vitals are good. Abdomen is softer. No tenderness no guarding or rebound no mass. Has a seroma long transverse scar. Nontender. Upper GI small bowel series was reviewed reviewed on Tuesday with the radiologist the. The esophagus appears dilated dense patulous and this slow transit. This is probably related to her gastric bypass to surgery. Does not appear to be the obstructed but she may have a degree of the stenosis that may be causing her symptoms. Small bowel series is otherwise normal. No evidence of any complication at her ileocolic anastomosis. Impression resolving diarrhea. Still the intraperitoneal intractable vomiting. Poor oral intake. Malnutrition. Weight loss. Recommendation Will R have evaluated for a repeat EGD even though one was done in March of this year.
[2016-06-28] MEDS ORDERED: MAGNESIUM SULFATE-D5W PMX 1 GM in DEXTROSE/WATER 1 100ML.BAG IVPB ONE (13:00)
--- NOTE | 2016-06-28 13:09 | P.PN ---
Subjective Patient is a 75-year-old female, patient of Dr. Geraldo Santiago in outpatient setting, with past medical history significant for coronary artery disease, CVA, GERD, hyperlipidemia, hypertension, myocardial infarction, osteoarthritis, sick sinus rhythm status post permanent pacemaker, hypothyroidism, and bariatric surgery, and recent right hemicolectomy. Patient presented to the emergency department with complaints of intractable nausea, vomiting and diarrhea. No history of fevers. Per patient, symptoms have been present since she had her colon resection. Patient reports weight loss. Abdominal x-ray with no evidence of acute process. Admission labs with evidence of severe hypomagnesemia and dehydration. Patient was admitted to the selective care unit for electrolyte replacement and IV hydration. Consult was requested for Dr. Velasco for general surgery. Patient was evaluated by Dr. Velasco and underwent an upper GI and small bowel x- ray on 06/25/2016 with evidence of mildly dilated esophagus possible secondary to gastric bypass surgery with possible degree of stenosis and evidence of small hiatal hernia. Patient is scheduled to undergo EGD. Upon examination, patient reports improvement in diarrhea with last bowel movement 2 days ago. Patient does report intractable nausea and vomiting with decreased oral intake. Denies shortness of breath or chest pain. Afebrile. Magnesium decreased to 1.3. Objective - Vital Signs Vital signs: Vital Signs Temp 97.5 F L 06/28/16 07:00 Pulse 98 06/28/16 08:00 Resp 16 06/28/16 07:00 BP 134/62 06/28/16 07:00 Pulse Ox 98 06/28/16 07:00 Intake & Output 06/27/16 06/28/16 06/28/16 18:59 06:59 18:59 Intake Total 1200 1250 Balance 1200 1250 Weight 70.1 kg Intake: IV 1000 1050 0.9% NaCl with KCl 20 Meq 1000 1050 /l 1,000 ml @ 100 mls/hr IV .Q10H FANTASMA Rx#: [id number] Oral 200 200 Other: Voiding Method Toilet Toilet Toilet Diaper Diaper Diaper # Voids 1 2 - Exam GENERAL: Pt awake and alert, nontoxic, in no acute distress. HEAD: Atraumatic, normocephalic. EYES: Pupils equal, round, and reactive to light, extraocular movements intact, sclera anicteric, conjunctiva are normal. ENT: Moist mucous membranes. NECK:Supple without lymphadenopathy or JVD. LUNGS: Breath sounds clear to auscultation bilaterally. No wheezes, rales, or rhonchi. HEART: Heart S1, S2, no S3 or S4. Regular rate and rhythm. No murmurs, rubs or gallops. ABDOMEN: Soft, nontender, nondistended, normoactive bowel sounds. No guarding, no rebound. EXTREMITIES: 2+ peripheral pulses. No edema. No calf tenderness. NEUROLOGICAL: Pt oriented x 3. Cranial nerves II through XII grossly intact. Strength and sensation grossly intact. PSYCH: Normal mood, normal affect. SKIN: Warm, dry, intact. Normal turgor. No rashes or lesions. - Labs CBC & Chem 7: 06/27/16 06:28 06/28/16 06:43 Labs: Abnormal Lab Results - Last 24 Hours (Table) 06/28/16 Range/Units 06:43 Potassium 5.2 H (3.5-5.1) mmol/L Chloride 112 H (98-107) mmol/L Magnesium 1.3 L (1.6-2.3) mg/dL Total Protein 5.6 L (6.3-8.2) g/dL Albumin 2.8 L (3.5-5.0) g/dL Assessment and Plan Plan: Impression and plan: 1. 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 2. Severe hypomagnesemia, present on admission, improved. 4. Hypertension. 6. Coronary artery disease. 7. GERD. 8. Hyperlipidemia. 9. Polyosteoarthritis. 10. Hypothyroidism. 11. History of sick sinus syndrome and paroxysmal atrial fibrillation status post implantation of permanent pacemaker. 12. History of nicotine dependence. 13. Hypothyroidism. 14. History of dementia, onset unknown. 15. Severe protein calorie malnutrition. 16. Possible esophageal stenosis. Patient may need EGD per general surgery. 17. Small hiatal hernia. 18. History of colon cancer status post right hemicolectomy. Continue to monitor patient. Continue IV hydration. Encourage oral intake. Replace electrolytes per protocol. Continue current medications. Continue GI and DVT prophylaxis. Increase activity as tolerated. Continue to follow with surgical service. Repeat CBC, BMP, magnesium in a.m. The above impression and plan have been discussed and directed by Dr. Santiago. Norma GIBBONS acting as scribe for Dr. Santiago.
[2016-06-28] MEDS: SODIUM CHLORIDE 0.9% 1,000 ML IV SCH (18:09)
[2016-06-28] MEDS: DONEPEZIL 10 MG TAB PO SCH (20:27)
[2016-06-28] MEDS: ATORVASTATIN 40 MG TAB PO SCH (20:27)
[2016-06-28] MEDS: ALPRAZolam 0.5 MG TAB PO PRN (21:59)
[2016-06-28] MEDS: traZODone HCL 50 MG TAB PO SCH (21:59)
[2016-06-29] MEDS: DIPHENOX-ATROP 2.5-0.025 MG 1 EACH TAB PO SCH ×3 (00:40→11:27)
[2016-06-29 01:18] VITALS: RESP 16
[2016-06-29] MEDS: SODIUM CHLORIDE 0.9% 1,000 ML IV SCH ×2 (02:54→08:10)
[2016-06-29] MEDS: LEVOTHYROXINE 25 MCG TAB PO SCH (05:55)
[2016-06-29 07:20] LABS: Anisocytosis Slight; Basophils % (A) 0 %; CH 26.9; CHCM 29.4; Eosinophils # (A) 0.2 k/uL (0-0.7); Eosinophils % (A) 3 %; HCT 36.4 % (34.0-46.0); HDW 2.61; HGB 10.7 gm/dL (11.4-16.0); Hypochromasia Marked; Luc # (Auto) 0.18; Luc % (Auto) 2; Lymphocytes # (A) 1.5 k/uL (1.0-4.8); Lymphocytes % (A) 17 %; MCHC 29.4 g/dL (31.0-37.0); MCV 91.7 fL (80.0-100.0); Mean Platelet Volume 7.7; Monocytes # (A) 0.4 k/uL (0-1.0); Monocytes % (A) 4 %; Neutrophils # (A) 6.4 k/uL (1.3-7.7); Neutrophils % (A) 74 %; RBC 3.97 m/uL (3.80-5.40); RDW 16.5 % (11.5-15.5); WBC 8.7 k/uL (3.8-10.6); WBC (Perox) 8.72
[2016-06-29 07:25] VITALS: TEMP 98.3
[2016-06-29 07:49] LABS: Anion Gap 9 mmol/L; Blood Urea Nitrogen 8 mg/dL (7-17); Calcium 8.8 mg/dL (8.4-10.2); Carbon Dioxide 23 mmol/L (22-30); Chloride 108 mmol/L (98-107); Glucose 72 mg/dL (74-99); Magnesium 1.7 mg/dL (1.6-2.3); Non-African American GFR(MDRD) >60 (>60 ml/min/1.73 sqM); Sodium 140 mmol/L (137-145)
[2016-06-29 07:54] LABS: Potassium 5.3 mmol/L (3.5-5.1)
[2016-06-29] MEDS: ENOXAPARIN 40 MG/0.4 ML SYRINGE SQ SCH (08:06)
[2016-06-29] MEDS: MEMANTINE 10 MG TAB PO SCH (08:07)
[2016-06-29] MEDS: METOPROLOL TARTRATE 25 MG TAB PO SCH (08:07)
[2016-06-29] MEDS: MELOXICAM 7.5 MG TAB PO SCH (08:07)
[2016-06-29] MEDS: amLODIPine 5 MG TAB PO SCH (08:07)
[2016-06-29] MEDS: POTASSIUM CHLORIDE ER 20 MEQ TAB.ER PO SCH (08:08)
[2016-06-29] MEDS: ASPIRIN 81 MG CHEW PO SCH (08:08)
[2016-06-29] MEDS: PANTOPRAZOLE 40 MG TABLET PO SCH (08:08)
[2016-06-29] MEDS: CALCIUM CARB-VIT D 500MG-200UN 1 EACH TAB PO SCH ×2 (08:08→11:28)
[2016-06-29] MEDS: PREGABALIN 100 MG CAP PO SCH (08:13)
[2016-06-29] MEDS: ONDANSETRON 4 MG/2 ML VIAL IVP PRN (08:19)
[2016-06-29 09:15] VITALS: BP 93/59; PULSE 78
[2016-06-29] MEDS ORDERED: MAGNESIUM OXIDE 400 MG TAB PO SCH (09:45)
[2016-06-29] MEDS ORDERED: BISACODYL 10 MG SUPP RECTAL STA ×2 (10:10→10:23)
--- NOTE | 2016-06-29 10:22 | P.PN ---
Progress Note - Text The patient is doing somewhat better. She seems to tolerate the food but only spits up saliva and mucus. Has not had a bowel movement for about 2 days now which is surprising considering her short bowel syndrome picture. This may be secondary to the Lomotil. Denies any abdominal pain. On examination the patient is awake alert in no distress. Temperature is normal. Vitals are stable. Hydration is good. The abdomen is quite soft and benign. Not distended. No mass or organomegaly. No tenderness. Potassium and magnesium and electrolytes are fairly normal now. WBC is normal. Hemoglobin stable at 10.7. Discussed with the Dr. Slaughter. She feels her upper GI area abdomen is quite complicated on EGD. Stability that she may have a stricture at her bypass anastomosis. She would recommend referral to a bariatric center. Impression. Resolving the diarrhea. Possible gastric outlet obstruction from a previous the bariatric surgery with gastric the intestinal bypass. Resolved dehydration. Resolved electrolyte abnormalities. Recommendation. Patient can be discharged from a surgical standpoint. Recommend Dulcolax suppository. Lomotil only when necessary. Referral to a tertiary bariatric center. Will see her back in the office in about a week or so.
--- NOTE | 2016-06-29 13:20 | P.DS ---
Providers Date of admission: 06/23/16 13:24 Expected date of discharge: 06/29/16 Attending physician: Geraldo Santiago Consults: 06/23/16 13:23 Consult Physician Urgent Consulting Provider: Shaw Velasco Consult Reason/Comments: Intractable vomiting-eval. for EGD. Do you want consulting provider notified?: Yes Primary care physician: Geraldo Santiago Hospital Course: Patient is a 75-year-old female, patient of Dr. Geraldo Santiago in outpatient setting, with past medical history significant for coronary artery disease, CVA, GERD, hyperlipidemia, hypertension, myocardial infarction, osteoarthritis, sick sinus rhythm status post permanent pacemaker, hypothyroidism, and bariatric surgery, and recent right hemicolectomy. Patient presented to the emergency department with complaints of intractable nausea, vomiting and diarrhea. No history of fevers. Per patient, symptoms have been present since she had her colon resection. Patient reports weight loss. Abdominal x-ray with no evidence of acute process. Admission labs with evidence of severe hypomagnesemia and dehydration. Patient was admitted to the selective care unit for electrolyte replacement and IV hydration. Consult was requested for Dr. Velasco for general surgery. Patient was evaluated by Dr. Velasco and underwent an upper GI and small bowel x-ray on 06/25/2016 with evidence of mildly dilated esophagus possible secondary to gastric bypass surgery with possible degree of stenosis and evidence of small hiatal hernia. Dr. Velasco discussed case with Dr. Slaughter, who felt patient might have a stricture at her bypass anastomosis and she would recommend referral to a bariatric center which could be done in the outpatient setting. Patient improved during her hospital stay and was stable for discharge from a surgical and medical standpoint. Patient will be discharged home with home care and close follow-up in the outpatient setting. Discharge diagnoses: 1. Dehydration suspect secondary to intractable nausea, vomiting, and diarrhea suspect secondary to possible short-bowel syndrome secondary and possible gastric outlet obstruction from previous bariatric surgery. 2. Severe hypomagnesemia, present on admission, resolved. 4. Hypertension. 6. Coronary artery disease. 7. GERD. 8. Hyperlipidemia. 9. Polyosteoarthritis. 10. Hypothyroidism. 11. History of sick sinus syndrome and paroxysmal atrial fibrillation status post implantation of permanent pacemaker. 12. History of nicotine dependence. 13. Hypothyroidism. 14. History of dementia, onset unknown. 15. Severe protein calorie malnutrition. 16. Small hiatal hernia. 17. History of colon cancer status post right hemicolectomy. The above impression and plan have been discussed and directed by Dr. Santiago. Norma GIBBONS acting as scribe for Dr. Santiago. Pertinent Studies: EKG; acute abdomen series; upper GI and small bowel x-ray Patient Condition at Discharge: Good Plan - Discharge Summary New Discharge Prescriptions: amLODIPine [Norvasc] 5 mg PO BID #60 tab Calcium Carb-Vit D 500Mg-200Un [Oscal 500+D] 1 each PO TID-W/MEALS #90 tab Magnesium Oxide [Mag-Ox] 400 mg PO BID #60 tab traZODone HCL [Desyrel] 50 mg PO HS #30 tab Discharge Medication List Meclizine HCl [Antivert] 25 mg PO DAILY PRN 10/21/14 [History] Memantine [Namenda] 10 mg PO BID 10/21/14 [History] Nitroglycerin Sl Tabs [Nitrostat] 0.4 mg SUBLINGUAL Q5M PRN 10/21/14 [History] Omeprazole 20 mg PO DAILY 10/21/14 [History] Aspirin [Adult Low Dose Aspirin EC] 81 mg PO DAILY 02/12/15 [History] Pregabalin [Lyrica] 200 mg PO BID #30 capsule 02/17/15 [Rx] Docusate [Colace] 100 mg PO BID PRN 09/09/15 [History] Donepezil [Aricept] 10 mg PO HS 12/15/15 [History] Levothyroxine Sodium [Synthroid] 25 mcg PO DAILY 12/15/15 [History] Meloxicam [Mobic] 15 mg PO DAILY 12/15/15 [History] Atorvastatin [Lipitor] 40 mg PO HS #30 tab 01/18/16 [Rx] Metoprolol Tartrate [Lopressor] 25 mg PO BID #60 tab 01/18/16 [Rx] amLODIPine [Norvasc] 5 mg PO BID #60 tab 01/18/16 [Rx] ALPRAZolam [Xanax] 0.5 mg PO BID 06/23/16 [History] Calcium Carb-Vit D 500Mg-200Un [Oscal 500+D] 1 each PO TID-W/MEALS #90 tab 06/29 [Rx] Magnesium Oxide [Mag-Ox] 400 mg PO BID #60 tab 06/29/16 [Rx] amLODIPine [Norvasc] 5 mg PO BID #60 tab 06/29/16 [Rx] traZODone HCL [Desyrel] 50 mg PO HS #30 tab 06/29/16 [Rx] Follow up Appointment(s)/Referral(s): Geraldo Santiago DO [Primary Care Provider] - 07/06/16 2:40 pm Shaw Velasco MD [STAFF PHYSICIAN] - 07/08/16 3:30 pm [facility], [NON-STAFF] - Ambulatory/Diagnostic Orders: Basic Metabolic Panel [LAB.AMB] Time Frame: 07/01/16, Location: Determined By Patient Activity/Diet/Wound Care/Special Instructions: FOLLOW UP AT [facility] Discharge Disposition: HOME WITH HOME HEALTH SERVICES
== END 2016-06-29 14:34 | disposition home health service (06) | DRG 640 ==
LOC: EC 11:16 → 6SEL 13:24 → 3SUR 06-27 16:32
PROVIDERS: ADMIT Family Medicine; ATTEND Family Medicine
DX: E86.0 Dehydration (principal); E43 Unspecified severe protein-calorie malnutrition; G62.9 Polyneuropathy, unspecified; I48.0 Paroxysmal atrial fibrillation; F03.90 Unspecified dementia, unspecified severity, without behavioral disturbance, psychotic disturbance, mood disturbance, and anxiety; E83.51 Hypocalcemia; E83.42 Hypomagnesemia; K21.9 Gastro-esophageal reflux disease without esophagitis; I25.10 Atherosclerotic heart disease of native coronary artery without angina pectoris; E78.5 Hyperlipidemia, unspecified; M19.91 Primary osteoarthritis, unspecified site; F41.9 Anxiety disorder, unspecified; K44.9 Diaphragmatic hernia without obstruction or gangrene; M21.372 Foot drop, left foot; E03.9 Hypothyroidism, unspecified; I10 Essential (primary) hypertension; I25.2 Old myocardial infarction; R32 Unspecified urinary incontinence; M48.00 Spinal stenosis, site unspecified; Z98.1 Arthrodesis status; Z98.84 Bariatric surgery status; Z90.49 Acquired absence of other specified parts of digestive tract; Z90.710 Acquired absence of both cervix and uterus; Z91.048 Other nonmedicinal substance allergy status; Z91.013 Allergy to seafood; Z88.5 Allergy status to narcotic agent; Z91.041 Radiographic dye allergy status; Z96.641 Presence of right artificial hip joint; Z95.0 Presence of cardiac pacemaker; Z86.73 Personal history of transient ischemic attack (TIA), and cerebral infarction without residual deficits; Z79.1 Long term (current) use of non-steroidal anti-inflammatories (NSAID); Z79.82 Long term (current) use of aspirin; Z79.899 Other long term (current) drug therapy; F32.9 Major depressive disorder, single episode, unspecified; F17.200 Nicotine dependence, unspecified, uncomplicated; E87.6 Hypokalemia; Z85.038 Personal history of other malignant neoplasm of large intestine
CPT/HCPCS: 36415; 74022; 74245; 80048; 80053; 82550; 82553; 83690; 83735; 84100; 84484; 85025; 85610; 85730; 93005; 94760; 96365; 96366; 96372; 96375; 99285

== ENCOUNTER → 2017-06-30 | Outpatient (CLI) | payer MEDICARE, OTHER ==
--- NOTE | 2017-06-30 11:15 | XR ---
EXAMINATION TYPE: XR chest 2V DATE OF EXAM: 06/30/2017 COMPARISON: 01/16/2016 HISTORY: Shortness of breath TECHNIQUE: Frontal and lateral views of the chest are obtained. FINDINGS: Scattered senescent parenchymal changes noted. Hyperinflation compatible with COPD. No evidence for infiltrate. No evidence for atelectasis. Heart size is stable. Dual-lead pacer device unchanged in position. Mediastinal structures are stable and grossly unremarkable. No evidence for hilar prominence. Degenerative changes dorsal spine. IMPRESSION: 1. No evidence for acute pulmonary disease.
== END | disposition home or self-care (01) ==
LOC: RADXRMAIN 10:08
PROVIDERS: ATTEND Family Medicine
DX: J44.9 Chronic obstructive pulmonary disease, unspecified (principal)
CPT/HCPCS: 71046

== ENCOUNTER → 2017-12-20 | Outpatient (CLI) | payer MEDICARE, OTHER ==
[2017-12-20 12:05] LABS: Basophils # (A) 0.1 k/uL (0-0.2); Basophils % (A) 1 %; Eosinophils # (A) 0.4 k/uL (0-0.7); Eosinophils % (A) 4 %; HCT 38.5 % (34.0-46.0); HGB 12.1 gm/dL (11.4-16.0); Lymphocytes # (A) 2.2 k/uL (1.0-4.8); Lymphocytes % (A) 23 %; MCH 29.6 pg (25.0-35.0); MCHC 31.4 g/dL (31.0-37.0); MCV 94.1 fL (80.0-100.0); Mean Platelet Volume 7.3; Monocytes # (A) 0.4 k/uL (0-1.0); Monocytes % (A) 4 %; Neutrophils # (A) 6.1 k/uL (1.3-7.7); Neutrophils % (A) 65 %; Platelet Count 256 k/uL (150-450); RBC 4.09 m/uL (3.80-5.40); RDW 14.9 % (11.5-15.5); WBC 9.3 k/uL (3.8-10.6)
[2017-12-20 18:59] LABS: Albumin/Globulin Ratio 1.74 (1.20-2.10); Anion Gap 5.8 mmol/L (4.00-12.00); Calcium 9.2 mg/dL (8.7-10.3); Carbon Dioxide 28.2 mmol/L (21.6-31.8); Globulin 2.3 g/dL (2.1-3.7); Potassium 4.7 mmol/L (3.5-5.5); Total Bilirubin 0.3 mg/dL (0.2-1.2); Total Protein 6.3 g/dL (6.2-8.2)
== END | disposition home or self-care (01) ==
LOC: LABWHC1 11:21
PROVIDERS: ATTEND Family Medicine
DX: E03.9 Hypothyroidism, unspecified (principal); E78.5 Hyperlipidemia, unspecified; R53.1 Weakness
CPT/HCPCS: 36415; 80053; 84439; 84443; 85025

== ENCOUNTER → 2018-08-01 | Outpatient (CLI) | payer MEDICARE, OTHER ==
[2018-08-01 12:14] LABS: Basophils # (A) 0.1 k/uL (0-0.2); Basophils % (A) 1 %; Eosinophils # (A) 0.4 k/uL (0-0.7); Eosinophils % (A) 4 %; HCT 34.7 % (34.0-46.0); HGB 10.9 gm/dL (11.4-16.0); Lymphocytes # (A) 2.8 k/uL (1.0-4.8); Lymphocytes % (A) 28 %; MCH 28.8 pg (25.0-35.0); MCHC 31.5 g/dL (31.0-37.0); MCV 91.6 fL (80.0-100.0); Mean Platelet Volume 7.6; Monocytes # (A) 0.5 k/uL (0-1.0); Monocytes % (A) 5 %; Neutrophils # (A) 6.2 k/uL (1.3-7.7); Neutrophils % (A) 61 %; Platelet Count 229 k/uL (150-450); RBC 3.79 m/uL (3.80-5.40); WBC 10.2 k/uL (3.8-10.6)
[2018-08-01 16:46] LABS: African American GFR (CKD) 71.5 (60.0-200.0); Albumin 3.8 g/dL (3.80-4.90); Albumin/Globulin Ratio 1.46 (1.60-3.17); Anion Gap 10.2 mmol/L (4.00-12.00); BUN/Creat Ratio 14.44 Ratio (12.00-20.00); Calcium 9.3 mg/dL (8.7-10.3); Carbon Dioxide 23.8 mmol/L (21.6-31.8); Globulin 2.6 g/dL (1.6-3.3); Magnesium 1.6 mg/dL (1.5-2.4); Potassium 4.3 mmol/L (3.5-5.5); Total Bilirubin 0.2 mg/dL (0.3-1.2); Total Protein 6.4 g/dL (6.2-8.2)
[2018-08-01 16:54] LABS: T4, Free (Free Thyroxine) 0.9 ng/dL (0.80-1.80)
== END | disposition home or self-care (01) ==
LOC: LABWHC1 10:44
PROVIDERS: ATTEND Family Medicine
DX: E78.5 Hyperlipidemia, unspecified (principal); E03.9 Hypothyroidism, unspecified; E83.42 Hypomagnesemia; E53.8 Deficiency of other specified B group vitamins
CPT/HCPCS: 36415; 80053; 80061; 82607; 83735; 84439; 84443; 85025

== ENCOUNTER → 2018-09-14 | Outpatient (CLI) | payer MEDICARE, OTHER ==
[2018-09-14 11:25] LABS: Basophils # (A) 0.1 k/uL (0-0.2); Basophils % (A) 1 %; Eosinophils # (A) 0.4 k/uL (0-0.7); Eosinophils % (A) 4 %; HCT 36.2 % (34.0-46.0); HGB 11.5 gm/dL (11.4-16.0); Hypochromasia Slight; Lymphocytes # (A) 2.4 k/uL (1.0-4.8); Lymphocytes % (A) 30 %; MCH 29.2 pg (25.0-35.0); MCHC 31.7 g/dL (31.0-37.0); Mean Platelet Volume 7.4; Monocytes # (A) 0.4 k/uL (0-1.0); Monocytes % (A) 5 %; Neutrophils # (A) 4.7 k/uL (1.3-7.7); Neutrophils % (A) 57 %; Platelet Count 231 k/uL (150-450); RBC 3.93 m/uL (3.80-5.40); RDW 15.5 % (11.5-15.5); WBC 8.1 k/uL (3.8-10.6)
[2018-09-14 18:43] LABS: African American GFR (CKD) 82.4 (60.0-200.0); Albumin 3.7 g/dL (3.80-4.90); Albumin/Globulin Ratio 1.54 (1.60-3.17); BUN/Creat Ratio 16.25 Ratio (12.00-20.00); Calcium 8.8 mg/dL (8.7-10.3); Globulin 2.4 g/dL (1.6-3.3); LDL Cholesterol,Calculated 42.6 mg/dL (0.0-131.0); Magnesium 1.3 mg/dL (1.5-2.4); Potassium 4.1 mmol/L (3.5-5.5); Total Bilirubin 0.4 mg/dL (0.3-1.2); Total Protein 6.1 g/dL (6.2-8.2); VLDL Calculation 19.4 mg/dL (5.00-40.00)
[2018-09-14 18:52] LABS: T4, Free (Free Thyroxine) 0.9 ng/dL (0.80-1.80)
[2018-09-14 21:04] LABS: Hemoglobin A1C 5.9 % (4.0-6.0)
== END | disposition home or self-care (01) ==
LOC: LABWHC1 10:19
PROVIDERS: ATTEND Family Medicine
DX: E78.5 Hyperlipidemia, unspecified (principal); E03.9 Hypothyroidism, unspecified; E83.42 Hypomagnesemia; E53.8 Deficiency of other specified B group vitamins
CPT/HCPCS: 36415; 80053; 80061; 82607; 83036; 83735; 84439; 84443; 85025

== ENCOUNTER → 2018-09-25 | Outpatient (CLI) | payer MEDICARE, OTHER ==
--- NOTE | 2018-09-25 17:05 | CT ---
EXAMINATION TYPE: CT lumbar spine wo con DATE OF EXAM: 09/25/2018 COMPARISON: 09/15/2012 HISTORY: Low back pain x years. CT DLP: 673.5 mGycm CONTRAST: None TECHNIQUE: CT of the lumbar spine is performed on a spiral scan at 3 mm thick sections. Reconstructed images are performed in the coronal and sagittal planes. FINDINGS: T12-L1: No focal disc herniation or significant disc bulge is evident. No spinal canal stenosis or neural foraminal stenosis is present. L1-L2: No focal disc herniation or significant disc bulge is evident. No spinal canal stenosis or n eural foraminal stenosis is present L2-L3: Mild disc bulge is present with anterior thecal sac contact. No AP spinal canal stenosis is pr esent. Neural foramen appear patent. L3-L4- L5-S1: These levels are limited due to beam hardening artifact from pedicle screws. Additiona lly, disc spacers are present. No obvious significant anterior thecal sac compression is evident. [place] inectomies been performed. No stenosis is present. Moderate bilateral L5-S1 foraminal narrowing is pr esent with preserved foraminal square. Vertebral alignment appears normal. IMPRESSION: 1. Stable postsurgical changes. 2. Disc bulging L2-L3 with anterior thecal sac compression. This is stable from comparison.
== END | disposition home or self-care (01) ==
LOC: RADCTMAIN 15:33
PROVIDERS: ATTEND Psychiatry & Neurology Neurology
DX: M51.86 Other intervertebral disc disorders, lumbar region (principal); Z98.890 Other specified postprocedural states; Z91.013 Allergy to seafood; Z88.5 Allergy status to narcotic agent
CPT/HCPCS: 72131

== ENCOUNTER → 2018-10-13 | Outpatient (CLI) | payer MEDICARE, OTHER ==
--- NOTE | 2018-10-13 12:34 | XR ---
EXAMINATION TYPE: XR chest 2V DATE OF EXAM: 10/13/2018 COMPARISON: 06/30/2017 HISTORY: Tobacco abuse TECHNIQUE: Frontal and lateral views of the chest are obtained. FINDINGS: Dual lead right-sided cardiac device is seen as noted on the prior. There is chronic right hemidiaphragm elevation. Cardiomediastinal silhouette is within normal limits. Surgical material is seen near the gastric esophageal junction as well as partial visualization of postsurgical changes of the lumbar spine. Mild degenerative changes of the thoracic spine are seen. No focal consolidation, pleural effusion or pneumothorax. IMPRESSION: No acute cardiopulmonary process.
== END | disposition home or self-care (01) ==
LOC: RADXRMAIN 11:16
PROVIDERS: ATTEND Family Medicine
DX: R06.02 Shortness of breath (principal); Z72.0 Tobacco use
CPT/HCPCS: 71046

== ENCOUNTER → 2019-01-26 | Outpatient (CLI) | payer MEDICARE, OTHER ==
[2019-01-26 10:29] LABS: Basophils # (A) 0.1 k/uL (0-0.2); Basophils % (A) 1 %; Eosinophils # (A) 0.4 k/uL (0-0.7); Eosinophils % (A) 5 %; HCT 35.7 % (34.0-46.0); HGB 11.9 gm/dL (11.4-16.0); Hypochromasia Slight; Lymphocytes # (A) 2.3 k/uL (1.0-4.8); Lymphocytes % (A) 25 %; MCH 31.1 pg (25.0-35.0); MCHC 33.3 g/dL (31.0-37.0); MCV 93.4 fL (80.0-100.0); Mean Platelet Volume 7.6; Monocytes # (A) 0.4 k/uL (0-1.0); Monocytes % (A) 4 %; Neutrophils # (A) 5.9 k/uL (1.3-7.7); Neutrophils % (A) 63 %; Platelet Count 318 k/uL (150-450); RBC 3.83 m/uL (3.80-5.40); RDW 14.5 % (11.5-15.5); WBC 9.4 k/uL (3.8-10.6)
[2019-01-26 10:37] LABS: Albumin 3.6 g/dL (3.5-5.0); Calcium 9.3 mg/dL (8.4-10.2); Magnesium 1.5 mg/dL (1.6-2.3); Potassium 4.2 mmol/L (3.5-5.1); Total Bilirubin 0.5 mg/dL (0.2-1.3)
[2019-01-26 10:53] LABS: T4, Free (Free Thyroxine) 1.2 ng/dL (0.78-2.19)
[2019-01-26 17:08] LABS: Hemoglobin A1C 5.5 % (4.0-6.0)
== END | disposition home or self-care (01) ==
LOC: LABPAT 09:23
PROVIDERS: ATTEND Family Medicine
DX: E78.5 Hyperlipidemia, unspecified (principal); E03.9 Hypothyroidism, unspecified; E53.8 Deficiency of other specified B group vitamins; E61.2 Magnesium deficiency
CPT/HCPCS: 80053; 80061; 82607; 83036; 83735; 84439; 84443; 85025

== ENCOUNTER → 2020-02-13 | Outpatient (CLI) | payer MEDICARE, OTHER ==
[2020-02-13 11:42] LABS: Basophils # (A) 0.1 k/uL (0-0.2); Basophils % (A) 1 %; Eosinophils # (A) 0.4 k/uL (0-0.7); Eosinophils % (A) 4 %; HCT 39.4 % (34.0-46.0); HGB 12.4 gm/dL (11.4-16.0); Hypochromasia Slight; Lymphocytes # (A) 2.7 k/uL (1.0-4.8); Lymphocytes % (A) 29 %; MCH 29.5 pg (25.0-35.0); MCHC 31.5 g/dL (31.0-37.0); MCV 93.8 fL (80.0-100.0); Mean Platelet Volume 7.7; Monocytes # (A) 0.4 k/uL (0-1.0); Monocytes % (A) 4 %; Neutrophils # (A) 5.6 k/uL (1.3-7.7); Neutrophils % (A) 60 %; Platelet Count 247 k/uL (150-450); RDW 15.4 % (11.5-15.5); WBC 9.3 k/uL (3.8-10.6)
[2020-02-13 20:19] LABS: Albumin/Globulin Ratio 1.74 (1.60-3.17); Anion Gap 6.8 mmol/L (4.00-12.00); BUN/Creat Ratio 16.67 Ratio (12.00-20.00); Calcium 9.3 mg/dL (8.7-10.3); Carbon Dioxide 28.2 mmol/L (21.6-31.8); Globulin 2.3 g/dL (1.6-3.3); Magnesium 2.1 mg/dL (1.5-2.4); Non-African American GFR(CKD) 61.2 (60.0-200.0); Potassium 4.8 mmol/L (3.5-5.5); Total Bilirubin 0.4 mg/dL (0.3-1.2); Total Protein 6.3 g/dL (6.2-8.2)
== END | disposition home or self-care (01) ==
LOC: LABWHC1 10:38
PROVIDERS: ATTEND Family Medicine
DX: I10 Essential (primary) hypertension (principal); E03.9 Hypothyroidism, unspecified; E83.42 Hypomagnesemia; D64.9 Anemia, unspecified
CPT/HCPCS: 36415; 80053; 83735; 84439; 84443; 85025

== ENCOUNTER → 2020-07-25 | Outpatient (CLI) | payer MEDICARE, OTHER ==
--- NOTE | 2020-07-25 14:48 | CT ---
EXAMINATION TYPE: CT pelvis wo con DATE OF EXAM: 07/25/2020 COMPARISON: None HISTORY: Groin pain CT DLP: 408.12 mGycm Automated exposure control for dose reduction was used. Contrast: None Technique: Axial images 5 mm thick sections. Reconstructed images in the coronal plane FINDINGS: Sacroiliac joints are patent. Symphysis pubis is narrowing. Right hip prosthesis is present with acet abular component. Left hip pin is present. These are causing beam hardening artifact along the lower pelvis. Note is made of pedicle screws in the lower lumbar spine. Within the [id number] there are postsurgical changes at the ascending colon. Vascular calcificatio ns within the aorta. The resistive distal colon. Urinary bladder as visualized appears normal. Free f luid is not identified. Cyst is likely on the left kidney. No inguinal hernias are identified. No urinary bladder calcifications are identified. No obvious hydr oureter is evident. No renal stones within the [id number] IMPRESSION: 1. NO SUSPICIOUS ABNORMALITY ACCOUNT FOR GROIN PAIN.
--- NOTE | 2020-07-25 15:09 | CT ---
EXAMINATION TYPE: CT lumbar spine wo con DATE OF EXAM: 07/25/2020 COMPARISON: 09/25/2018 HISTORY: Back pain CT DLP: 983.90 mGycm CONTRAST: None TECHNIQUE: CT of the lumbar spine is performed on a spiral scan at 3 mm thick sections. Reconstructed images are performed in the coronal and sagittal planes. FINDINGS: Vertebral body alignment appears normal. Disc space narrowing and disc spaces are present L 3-4 L4-5. There is narrowing L2-3 disc height. Vacuum phenomenon is present at L5-S1. These findings appear stable from the comparison. Pedicle screws and fixation rods are present L3-L5. No obvious stenosis is evident. However, there is some limitation to these levels due to beam hardening artifact. L2-L3: There is loss of disc height is level. Endplate spurring is mild anterior thecal sac flattenin g. No AP spinal canal stenosis is present. Neural foramen are patent. IMPRESSION: Degenerative disc changes L2-L3. Endplate spurring has mild anterior thecal sac flattening. No signif icant interval changes.
== END | disposition home or self-care (01) ==
LOC: RADCTMAIN 09:01
PROVIDERS: ATTEND Orthopaedic Surgery Orthopaedic Surgery of the Spine
DX: M51.36 Other intervertebral disc degeneration, lumbar region (principal)
CPT/HCPCS: 72131; 72192

== ENCOUNTER → 2020-10-21 | Outpatient (CLI) | payer MEDICARE, OTHER ==
[2020-10-21 11:02] LABS: HCT 37.7 % (37.2-46.3); HGB 11.8 g/dL (12.0-15.0); MCH 29.8 pg (27.0-32.0); MCHC 31.3 g/dL (32.0-37.0); MCV 95.2 fL (80.0-97.0); Mean Platelet Volume 10.9 fL (9.5-12.2); Platelet Count 233 X 10*3/uL (140-440); RBC 3.96 X 10*6/uL (4.10-5.20); RDW 15.7 % (11.5-14.5); WBC 6.82 X 10*3/uL (4.50-10.00)
[2020-10-21 15:52] LABS: African American GFR (CKD) 70.5 (60.0-200.0); Albumin 3.8 g/dL (3.80-4.90); Albumin/Globulin Ratio 1.52 (1.60-3.17); Anion Gap 9.9 mmol/L (4.00-12.00); BUN/Creat Ratio 13.33 Ratio (12.00-20.00); Calcium 9.4 mg/dL (8.7-10.3); Carbon Dioxide 27.1 mmol/L (21.6-31.8); Chol/HDL Ratio 2.11; Globulin 2.5 g/dL (1.6-3.3); LDL Cholesterol,Calculated 47.2 mg/dL (0.0-131.0); Magnesium 1.7 mg/dL (1.5-2.4); Non-African American GFR(CKD) 60.8 (60.0-200.0); Potassium 4.7 mmol/L (3.5-5.5); Total Bilirubin 0.3 mg/dL (0.2-1.2); Total Protein 6.3 g/dL (6.2-8.2); VLDL Calculation 12.8 mg/dL (5.00-40.00)
== END | disposition home or self-care (01) ==
LOC: LABWHC1 07:38
PROVIDERS: ATTEND Family Medicine
DX: D64.9 Anemia, unspecified (principal); E83.42 Hypomagnesemia; E03.9 Hypothyroidism, unspecified
CPT/HCPCS: 36415; 80053; 80061; 83735; 84439; 84443; 85027

== ENCOUNTER → 2020-10-21 | Outpatient (CLI) | payer MEDICARE, OTHER ==
--- NOTE | 2020-10-21 15:46 | XR ---
EXAMINATION TYPE: XR chest 2V DATE OF EXAM: 10/21/2020 COMPARISON: 10/13/2018 HISTORY: 80 year-old female shortness of breath, tobacco abuse, smoker TECHNIQUE: Frontal and lateral views FINDINGS: The cardiomediastinal silhouette, aorta, and pulmonary vasculature are within normal limits. Lungs an d pleural spaces are clear. Right anterior chest wall pacemaker generator with right atrial and right ventricular leads. Loss of the subacromial space on the right suggesting chronic full-thickness rota tor cuff tear. Suture anchors at the left shoulder from prior cuff repair. IMPRESSION: No acute cardiopulmonary process.
== END | disposition home or self-care (01) ==
LOC: RADXRMAIN 08:40
PROVIDERS: ATTEND Family Medicine
DX: R06.02 Shortness of breath (principal); Z72.0 Tobacco use
CPT/HCPCS: 71046

== ENCOUNTER → 2020-11-27 | Outpatient (CLI) | payer MEDICARE, OTHER ==
--- NOTE | 2020-11-27 11:33 | CT ---
EXAMINATION TYPE: CT abdomen pelvis wo con DATE OF EXAM: 11/27/2020 COMPARISON: 07/25/2020 HISTORY: weight loss, Gastric outlet obstruction, dilated biliary CT DLP: 351.1 mGycm Examination of the solid and hollow viscera is limited given the lack of contrast. FINDINGS: LUNG BASES: No evidence for nodule. No evidence for infiltrate. LIVER/GB: The gallbladder is unremarkable. No space-occupying hepatic lesion. Diminutive left hepatic lobe with the intrahepatic prominence noted. Area of decreased attenuation could reflect underlying lesion. Lack of contrast limits evaluation. Consider contrast study or ultrasound evaluation. PANCREAS: No pancreatic mass identified. No inflammatory process seen. SPLEEN: No evidence for splenomegaly. No intrasplenic lesions seen. ADRENALS: No adrenal nodules identified. No evidence for thickening. KIDNEYS: Hypoattenuating lesion left kidney in its upper pole measures 3.4 cm. Lesion is nonspecific given lack of contrast. Mildly diminutive right kidney. No nephrolithiasis. No hydronephrosis. BOWEL: There is a small hiatal hernia with gastroesophageal reflux noted. There is gastric wall thick ening. Underlying neoplasm or gastritis should be considered. Consider direct visualization. The haily doc of the gastrointestinal tract appears to be of normal caliber. No evidence for free air or absc ess. Lymph nodes: No evidence for adenopathy greater than 1 cm. Abdominal aorta: Atheromatous changes seen. No evidence for aneurysm. Genital organs: No significant abnormality. Other: Postoperative changes lumbar spine with the pedicular screws in place and changes of the fusio n. IMPRESSION: 1. Gastric body wall thickening may reflect underlying neoplasm versus a gastritis. Consider direct v isualization. Postoperative changes noted about the stomach. Hiatal hernia with gastroesophageal refl ux noted as well. 2. Atrophic left hepatic lobe with biliary ductal prominence and area of decreased attenuation. Given lack of contrast examination is limited in lesion is difficult to exclude. Consider ultrasound corre lation. 3. Nonspecific left renal lesion.
== END | disposition home or self-care (01) ==
LOC: RADCTMAIN 10:59
PROVIDERS: ATTEND Internal Medicine Gastroenterology
DX: K21.9 Gastro-esophageal reflux disease without esophagitis (principal); K44.9 Diaphragmatic hernia without obstruction or gangrene; K76.89 Other specified diseases of liver; N28.89 Other specified disorders of kidney and ureter
CPT/HCPCS: 74176

== ENCOUNTER → 2021-01-27 | Outpatient (CLI) | payer MEDICARE, OTHER ==
[2021-01-27 14:53] LABS: Basophils # (A) 0.05 X 10*3/uL (0.00-0.10); Basophils % (A) 1.1 %; Eosinophils # (A) 0.01 X 10*3/uL (0.04-0.35); Eosinophils % (A) 0.2 %; HCT 38.5 % (37.2-46.3); HGB 12.3 g/dL (12.0-15.0); Lymphocytes # (A) 1.26 X 10*3/uL (0.90-5.00); Lymphocytes % (A) 28.1 %; MCH 30.1 pg (27.0-32.0); MCHC 31.9 g/dL (32.0-37.0); MCV 94.1 fL (80.0-97.0); Mean Platelet Volume 11.6 fL (9.5-12.2); Monocytes # (A) 0.74 X 10*3/uL (0.20-1.00); Monocytes % (A) 16.5 %; Neutrophils # (A) 2.41 X 10*3/uL (1.80-7.70); Neutrophils % (A) 53.9 %; Platelet Count 162 X 10*3/uL (140-440); RBC 4.09 X 10*6/uL (4.10-5.20); RDW 15.3 % (11.5-14.5); WBC 4.48 X 10*3/uL (4.50-10.00)
[2021-01-27 16:18] LABS: ALT 14 U/L (8-44); AST 30 U/L (13-35); African American GFR (CKD) 75.6 (60.0-200.0); Albumin 3.5 g/dL (3.8-4.9); Albumin/Globulin Ratio 1.51 (1.60-3.17); Alkaline Phosphatase 91 U/L (41-126); BUN/Creat Ratio 12.25 Ratio (12.00-20.00); Blood Urea Nitrogen 10.4 mg/dL (9.0-27.0); Calcium 8.5 mg/dL (8.7-10.3); Carbon Dioxide 19.5 mmol/L (20.0-27.5); Chloride 102 mmol/L (96-109); Chol/HDL Ratio 2.23 Ratio; Globulin 2.3 g/dL (1.6-3.3); Glucose 95 mg/dL (70-110); LDL Cholesterol,Calculated 50.7 mg/dL (0.0-131.0); Magnesium 1.5 mg/dL (1.5-2.4); Non-African American GFR(CKD) 65.3 (60.0-200.0); Potassium 3.9 mmol/L (3.5-5.5); Sodium 137 mmol/L (135-145); Total Bilirubin <0.20 mg/dL (0.30-1.20); Total Protein 5.9 g/dL (6.2-8.2)
== END | disposition home or self-care (01) ==
LOC: LABWHC1 09:20
PROVIDERS: ATTEND Family Medicine
DX: I10 Essential (primary) hypertension (principal); A88.1 Epidemic vertigo; E78.5 Hyperlipidemia, unspecified; E61.2 Magnesium deficiency; E03.9 Hypothyroidism, unspecified
CPT/HCPCS: 36415; 80053; 80061; 83036; 83735; 84439; 84443; 85025

== ENCOUNTER → 2022-07-29 | Outpatient (CLI) | payer MEDICARE, OTHER ==
[2022-07-29 15:52] LABS: ALT 20 U/L (8-44); AST 19 U/L (13-35); Albumin 3.9 d/dL (3.8-4.9); Alkaline Phosphatase 100 U/L (41-126); BUN/Creat Ratio 21.12 Ratio (12.00-20.00); Blood Urea Nitrogen 16.9 mg/dL (9.0-27.0); Calcium 10.1 mg/dL (8.7-10.3); Carbon Dioxide 26.7 mmol/L (21.6-31.8); Chloride 104 mmol/L (96-109); Globulin 2.6 d/dL (1.6-3.3); Glucose 81 mg/dL (70-110); Potassium 4.1 mmol/L (3.5-5.5); Sodium 143 mmol/L (135-145); T4, Free (Free Thyroxine) 1.36 ng/dL (0.80-1.80); Total Bilirubin 0.5 mg/dL (0.3-1.2); Total Protein 6.5 d/dL (6.2-8.2)
[2022-07-29 16:34] LABS: HCT 42.5 % (37.2-46.3); HGB 13.5 d/dL (12.0-15.0); MCHC 31.8 d/dL (32.0-37.0); MCV 97.7 FL (80.0-97.0); NRBC Per 100 WBC 0 X 10*3/uL (0.00-0.01); Platelet Count 268 X 10*3/uL (140-440); RBC 4.35 X 10*6/uL (4.10-5.20); RDW 14.4 % (11.5-14.5); WBC 9.21 X 10*3/uL (4.50-10.00)
== END | disposition home or self-care (01) ==
LOC: LABWHC1 08:35
PROVIDERS: ATTEND Nurse Practitioner Family
DX: I10 Essential (primary) hypertension (principal); E78.5 Hyperlipidemia, unspecified; E03.9 Hypothyroidism, unspecified; G62.9 Polyneuropathy, unspecified; L89.159 Pressure ulcer of sacral region, unspecified stage
CPT/HCPCS: 36415; 80053; 83880; 84439; 84443; 85027

== ENCOUNTER → 2022-08-09 | Outpatient (CLI) | payer MEDICARE, OTHER ==
--- NOTE | 2022-08-09 09:48 | MM ---
Reason for Exam: Screening (asymptomatic). Last mammogram was performed 6 year(s) and 3 month(s) ago. Patient History: Menarche at age 10. First Full-Term at age 21. Hysterectomy at age 31. Sister had breast cancer, age 72. Risk Values: Jannet 5 year model risk: 3.4%. Prior Study Comparison: 11/01/2011 Screening Mammogram, [facility]. 11/06/2012 Screening Mammogram, [facility]. 05/31/2016 Bilateral Diagnostic Mammogram, [facility]. Tissue Density: There are scattered fibroglandular densities. Findings: Analyzed By CAD. There is no suspicious group of microcalcifications or new suspicious mass in either breast. Overall Assessment: Negative, BI-RAD 1 Management: Screening Mammogram of both breasts in 1 year. . Patient should continue monthly self-breast exams. A clinical breast exam by your physician is recommended on an annual basis. This exam should not preclude additional follow-up of suspicious palpable abnormalities. Note on Jannet scores and lifetime risk: 1. A Jannet score greater than 3% is considered moderate risk. If this is the case, consider specialist referral to assess eligibility for a risk reducing agent. 2. If overall lifetime risk for the development of breast cancer is 20% or higher, the patient may qualify for future screening with alternating mammogram and breast MRI. Electronically signed and approved by: Efrem Davis M.D. Radiologis
== END | disposition home or self-care (01) ==
LOC: RADMAMWWP 06:45
PROVIDERS: ATTEND Family Medicine
DX: Z12.31 Encounter for screening mammogram for malignant neoplasm of breast (principal); Z78.0 Asymptomatic menopausal state; Z80.3 Family history of malignant neoplasm of breast
CPT/HCPCS: 77063; 77067

== ENCOUNTER 2022-12-02 10:57 | Day surgery (SDC) | payer MEDICARE, OTHER ==
[2022-12-01 09:42] VITALS: BMI 22.3
[~2022-12-02 10:57] MED LIST: SODIUM CHLORIDE 0.9% 1,000 ML IV SCH
[2022-12-02 11:52] VITALS: RESP 16; TEMP 98.4
[2022-12-02] MEDS ORDERED: SODIUM CHLORIDE 0.9% 500 ML 500 ML IV ONE (12:37)
[2022-12-02 14:00] VITALS: BP 137/63; PULSE 64
--- NOTE | 2022-12-02 15:01 | P.EPPROC ---
- EP Procedure Note Electrophysiology Procedure Note: Diagnosis Recurrent presyncope Twelve-lead EKG shows atrial paced rhythm narrow QRS normal ST segments Tilt table test per protocol Baseline blood pressure 107/74 mmHg pulse rate in the 60s line patient was tilted upright at an angle of 70 per protocol there was an immediate drop in her blood pressure to 89/59 mmHg She complained of being tired at that time Her blood pressure remained in the high 90s and low 100s thereafter. Heart rates remained stable Occasionally she felt lightheaded Thereafter to is the end there is a further drop in blood pressure 2/70 7/40 8 mmHg without syncope When she was laid supine at the end of the procedure her blood pressure normalized 111/53 mmHg Impression Atrial paced rhythm on 12-lead EKG Mild dysautonomia/orthostatic hypotension syndrome
== END 2022-12-02 13:58 | disposition home or self-care (01) ==
LOC: CATHEP 10:57
PROVIDERS: ATTEND Internal Medicine Clinical Cardiac Electrophysiology
DX: I25.10 Atherosclerotic heart disease of native coronary artery without angina pectoris (principal); I10 Essential (primary) hypertension; E78.5 Hyperlipidemia, unspecified; F17.210 Nicotine dependence, cigarettes, uncomplicated; Z82.49 Family history of ischemic heart disease and other diseases of the circulatory system; Z79.899 Other long term (current) drug therapy; Z79.82 Long term (current) use of aspirin
CPT/HCPCS: 93660

== ENCOUNTER → 2023-03-09 | Outpatient (CLI) | payer MEDICARE, OTHER ==
--- NOTE | 2023-03-09 09:41 | XR ---
EXAMINATION TYPE: XR chest 2V DATE OF EXAM: 03/09/2023 COMPARISON: 10/21/20 HISTORY: Shortness of breath TECHNIQUE: Frontal and lateral views of the chest are obtained. FINDINGS: Scattered senescent parenchymal changes noted. Hyperinflation compatible with COPD. No evidence for infiltrate. No evidence for atelectasis. Heart size is stable. Mediastinal structures are stable and grossly unremarkable. No evidence for hilar prominence. Degenerative changes dorsal spine. IMPRESSION: 1. No evidence for acute pulmonary disease.
== END | disposition home or self-care (01) ==
LOC: RADXRMAIN 09:20
PROVIDERS: ATTEND Family Medicine
DX: J20.8 Acute bronchitis due to other specified organisms (principal); R05.9 Cough, unspecified; R06.02 Shortness of breath
CPT/HCPCS: 71046

== ENCOUNTER → 2023-03-21 | Outpatient (CLI) | payer MEDICARE, OTHER | END | disposition home or self-care (01) | LOC: LABWHC1 08:55 | PROVIDERS: ATTEND Family Medicine | DX: E61.2 Magnesium deficiency (principal) | CPT/HCPCS: 36415; 83735 ==

== ENCOUNTER → 2023-06-24 | Outpatient (CLI) | payer MEDICARE, OTHER ==
--- NOTE | 2023-06-25 02:41 | US ---
EXAMINATION TYPE: US carotid duplex BILAT DATE OF EXAM: 06/24/2023 COMPARISON: NONE CLINICAL INDICATION: Female, 83 years old with history of W19.XXXAFALL INITIAL ENCOUNTER, [id number] S AND G; dizzy TECHNIQUE: Carotid duplex ultrasound examination. Indirect Doppler criteria was utilized. FINDINGS: EXAM MEASUREMENTS: RIGHT: Peak Systolic Velocity (PSV) cm/sec ----- Right CCA: 47.7 ----- Right ICA: 85.8 ----- Right ECA: 60.1 ICA/CCA ratio: 1.9 RIGHT: End Diastole cm/sec ----- Right CCA: 14.2 ----- Right ICA: 22.5 ----- Right ECA: 0.0 LEFT: Peak Systolic Velocity (PSV) cm/sec ----- Left CCA: 50.5 ----- Left ICA: 103 ----- Left ECA: 69.8 ICA/CCA ratio: 2.0 LEFT: End Diastole cm/sec ----- Left CCA: 15.0 ----- Left ICA: 25.2 ----- Left ECA: 9.2 VERTEBRALS (direction of flow): Right Vertebral: Antegrade Left Vertebral: Antegrade Rhythm: Normal FLUME TENDER NOTES: patient would not stop talking after she was asked several times heterogeneous plaque with no significant stenosis seen IMPRESSION: Mild to moderate atherosclerotic plaque with last than 50% stenosis at the origin of the bilateral IC A. Criteria for Assigning % of Stenosis / Diameter reduction (Estimation based on the indirect measurements of the internal carotid artery velocities (ICA PSV). 1. Normal (no stenosis)=ICA PSV < 125 cm/s: ratio < 2.0: ICA EDV<40 cm/s. 2. Less than 50% stenosis=ICA PSV < 125 cm/s: ratio < 2.0: ICA EDV<40 cm/s. 3. 50 to 69% stenosis=ICA PSV of 125 to 230 cm/s: ration 2.0 ? 4.0: ICA EDV 40-100 cm/s. 4. Greater than 70% stenosis to near occlusion= ICA PSV > 230 cm/s: ratio > 4.0: ICA EDV > 100 cm/s. 5. Near occlusion= ICA PSV velocities may be low or undetectable: variable ratio and ICA EDV. 6. Total occlusion=unable to detect flow.
== END | disposition home or self-care (01) ==
LOC: RADUSWWP 06-20 14:34
PROVIDERS: ATTEND Family Medicine
DX: R42 Dizziness and giddiness (principal); W19.XXXA Unspecified fall, initial encounter
CPT/HCPCS: 93880

== ENCOUNTER → 2023-08-15 | Outpatient (CLI) | payer MEDICARE, OTHER ==
--- NOTE | 2023-08-17 13:15 | MM ---
Reason for Exam: Screening (asymptomatic). Last screening mammogram was performed 12 month(s) ago. Patient History: Menarche at age 10. First Full-Term at age 21. Hysterectomy at age 31. Sister had breast cancer, age 72. Risk Values: Jannet 5 year model risk: 3.3%. NCI Lifetime model risk: 4.4%. Prior Study Comparison: 11/06/2012 Screening Mammogram, [facility]. 05/31/2016 Bilateral Diagnostic Mammogram, [facility]. 08/09/2022 Bilateral MG 3D screening mammo w/cad, [facility] WITH [facility]. Tissue Density: There are scattered areas of fibroglandular density. Findings: Analyzed By CAD. Right breast: There is no suspicious group of microcalcifications or new suspicious mass. Left breast: There is no suspicious group of microcalcifications or new suspicious mass. Overall Assessment: Negative, BI-RAD 1 Management: Screening Mammogram of both breasts in [address] [facility] will attempt to contact patient to return for supplemental views and ultrasound if indicated. Patient should continue monthly self-breast exams. A clinical breast exam by your physician is recommended on an annual basis. This exam should not preclude additional follow-up of suspicious palpable abnormalities. Note on Jannet scores and lifetime risk: 1. A Jannet score greater than 3% is considered moderate risk. If this is the case, consider specialist referral to assess eligibility for a risk reducing agent. 2. If overall lifetime risk for the development of breast cancer is 20% or higher, the patient may qualify for future screening with alternating mammogram and breast MRI. Electronically signed and approved by: Facundo Lovett DO
== END | disposition home or self-care (01) ==
LOC: RADMAMWWP 09:33
PROVIDERS: ATTEND Family Medicine
DX: Z12.31 Encounter for screening mammogram for malignant neoplasm of breast (principal); Z80.3 Family history of malignant neoplasm of breast
CPT/HCPCS: 77063; 77067

== ENCOUNTER → 2023-09-20 | Outpatient (CLI) | payer MEDICARE, OTHER | END | disposition home or self-care (01) | LOC: LABPRL 13:24 | PROVIDERS: ATTEND Family Medicine | DX: E03.9 Hypothyroidism, unspecified (principal); D64.9 Anemia, unspecified; E61.2 Magnesium deficiency | CPT/HCPCS: 80053; 83735; 84439; 84443; 85025 ==

== ENCOUNTER → 2023-10-24 | Outpatient (CLI) | payer MEDICARE, OTHER ==
[2023-10-24 15:39] LABS: Magnesium 1.7 mg/dL (1.5-2.4)
[2023-10-24 15:40] LABS: Blood Urea Nitrogen 16.4 mg/dL (9.0-27.0); Carbon Dioxide 25.7 mmol/L (21.6-31.8); Chloride 106 mmol/L (96-109); Potassium 4.2 mmol/L (3.5-5.5); Sodium 142 mmol/L (135-145)
[2023-10-24 16:57] LABS: HCT 38.2 % (37.2-46.3); HGB 12.5 g/dL (12.0-15.0); MCH 31.6 pg (27.0-32.0); MCHC 32.7 g/dL (32.0-37.0); MCV 96.7 FL (80.0-97.0); Mean Platelet Volume 11.3 FL (9.5-12.2); NRBC Per 100 WBC 0 X 10*3/uL (0.00-0.01); Platelet Count 232 X 10*3/uL (140-440); RBC 3.95 X 10*6/uL (4.10-5.20); RDW 14.6 % (11.5-14.5)
== END | disposition home or self-care (01) ==
LOC: LABPAT 13:13
PROVIDERS: ATTEND Internal Medicine Clinical Cardiac Electrophysiology
DX: Z01.818 Encounter for other preprocedural examination
CPT/HCPCS: 36415; 80051; 82565; 83735; 84520; 85027

== ENCOUNTER 2023-11-08 10:11 | Day surgery (SDC) | payer MEDICARE, OTHER ==
[2023-11-03 11:53] VITALS: BMI 22.3
[~2023-11-08 10:11] MED LIST changes: -SODIUM CHLORIDE 0.9% 1,000 ML IV SCH; +VANCOMYCIN IV PER PHARMACY 1 EACH MISC MISCELLANE PRN
[2023-11-08 10:29] VITALS: PULSE 60
[2023-11-08] MEDS: VANCOMYCIN 1,000 MG in SODIUM CHLORIDE 0.9% 250 ML IVPB PRN (10:32)
[2023-11-08] MEDS: SODIUM CHLORIDE 0.9% 1,000 ML IV SCH (10:32)
[2023-11-08] MEDS ORDERED: MIDAZOLAM 2 MG/2 ML VIAL ONE (15:22)
[2023-11-08] MEDS: IV FLUID CONTINUATION 500 ML IV ONE (15:25)
[2023-11-08] MEDS: ceFAZolin 1 GM in SODIUM CHLORIDE 0.9% IRRIG BTL 250 ML IRRIGATION PRN (16:07)
[2023-11-08] MEDS: LIDOCAINE 1% INJ 10MG/ML (20 ML MDV) SQ ONE (16:12)
[2023-11-08] MEDS: ROPIVACAINE 5 MG/ML 30 ML VIAL MISCELLANE ONE (16:12)
[2023-11-08] MEDS ORDERED: MECLIZINE 25 MG TAB PO PRN (17:05)
--- NOTE | 2023-11-08 17:19 | P.EPPROC ---
- EP Procedure Note Electrophysiology Procedure Note: Diagnosis Symptomatic bradycardia, status post dual-chamber pacemaker, predominantly atrially paced. Dual-chamber pacemaker at [facility] Lateral migration of pacemaker generator can Procedure Dual-chamber pacemaker generator change New subfascial pocket Details Patient was brought to the EP lab in a fasting state. Written informed consent was obtained prior to the procedure. Conscious sedation provided. IV antibiotics including vancomycin administered. Local anesthesia administe red. A 4 cm incision made in the right pectoral area. Subfascial pocket accessed. Generator explanted. Leads freed from the surrounding capsule. Partial capsulectomy performed. Hemostasis achieved. A new subfascial pocket made more medially and caudally to place the device more medially. Old pacemaker generator explanted. New dual-chamber pacemaker, Castañeda, implanted. Leads interrogated. Device secured more medially in the new pocket Chronic atrial lead position the right atrial appendage. Pacing threshold 1 V at 0.6 ms, pacing impedance 650 ohms. No P waves Chronic RV lead position in the RV apex. Pacing threshold 1.5 V at 0.6 ms, R waves 3.2 mV and pacing impedance 760 ohms Device county judge: [employer], [employer] Box MRI model #2272 pacemaker Dual-chamber pacemaker device connected to the leads and placed in the new medially located subfascial pocket, secured with a nonabsorbable suture Antibiotic pouch placed Pocket closed in 3 layers and dressed per protocol Patient tolerated the procedure well without acute complications Pacemaker programming: DDDR 60-120 Paced AV delay 300 ms, sensed AV delay 275 ms
[2023-11-08] MEDS: MAGNESIUM OXIDE 400 MG TAB PO SCH (22:08)
[2023-11-08] MEDS: amLODIPine 5 MG TAB PO SCH (22:08)
[2023-11-08] MEDS: ATORVASTATIN 40 MG TAB PO SCH (22:08)
[2023-11-08] MEDS: METOPROLOL TARTRATE 25 MG TAB PO SCH (22:08)
[2023-11-08] MEDS: ALPRAZolam 0.5 MG TAB PO SCH (22:08)
[2023-11-08] MEDS: PREGABALIN 100 MG CAP PO SCH (22:08)
[2023-11-08] MEDS: ACETAMINOPHEN IV (For NPO) 1,000 MG in EMPTY BAG 1 BAG IVPB ONE (22:11)
[2023-11-09] MEDS: PANTOPRAZOLE 40 MG TABLET PO SCH (06:25)
[2023-11-09] MEDS: LEVOTHYROXINE 25 MCG TAB PO SCH (06:25)
[2023-11-09] MEDS: ASPIRIN 81 MG PO SCH (08:34)
[2023-11-09] MEDS: ACETAMINOPHEN TAB 325 MG TAB PO PRN (08:38)
[2023-11-09 09:06] VITALS: BP 98/61; RESP 16; TEMP 98.2
--- NOTE | 2023-11-17 14:00 | P.DS ---
Providers Attending physician: Keagan Chaney Primary care physician: [facility] Course: Patient is doing well post generator change Pacemaker generator change is healed well no hematoma no swelling Heart sounds are normal Breath sounds are clear Patient is asymptomatic Vitals are stable Impression Underlying bradycardia, severe and symptomatic Status post permanent pacemaker generator change for device at [facility], successful Plan Continue current medication without any changes Discharge home today follow-up in the device clinic in 1 week Plan - Discharge Summary Discharge Rx Participant: No New Discharge Prescriptions: Continue Meclizine HCl [Antivert] 25 mg PO DAILY PRN PRN Reason: Vertigo Omeprazole 20 mg PO BID Nitroglycerin Sl Tabs [Nitrostat] 0.4 mg SUBLINGUAL Q5M PRN PRN Reason: Chest Pain Aspirin [Adult Low Dose Aspirin EC] 81 mg PO DAILY Atorvastatin [Lipitor] 40 mg PO HS #30 tab Metoprolol Tartrate [Lopressor] 25 mg PO BID #60 tab amLODIPine [Norvasc] 5 mg PO BID #60 tab ALPRAZolam [Xanax] 0.5 mg PO HS Magnesium Oxide [Mag-Ox] 400 mg PO BID #60 tab Pregabalin [Lyrica] 200 mg PO TID Levothyroxine Sodium 25 mcg PO DAILY Discharge Medication List Meclizine HCl [Antivert] 25 mg PO DAILY PRN 10/21/14 [History] Nitroglycerin Sl Tabs [Nitrostat] 0.4 mg SUBLINGUAL Q5M PRN 10/21/14 [History] Omeprazole 20 mg PO BID 10/21/14 [History] Aspirin [Adult Low Dose Aspirin EC] 81 mg PO DAILY 02/12/15 [History] Atorvastatin [Lipitor] 40 mg PO HS #30 tab 01/18/16 [Rx] Metoprolol Tartrate [Lopressor] 25 mg PO BID #60 tab 01/18/16 [Rx] amLODIPine [Norvasc] 5 mg PO BID #60 tab 01/18/16 [Rx] ALPRAZolam [Xanax] 0.5 mg PO HS 06/23/16 [History] Magnesium Oxide [Mag-Ox] 400 mg PO BID #60 tab 06/29/16 [Rx] Pregabalin [Lyrica] 200 mg PO TID 12/01/22 [History] Levothyroxine Sodium 25 mcg PO DAILY 11/03/23 [History] Follow up Appointment(s)/Referral(s): Keagan Chaney MD [STAFF PHYSICIAN] - 11/14/23 4:00 pm (Appointment is at Device Clinic located at Cardiology's Main Office on [address]) [facility], [NON-STAFF] - 1 Week Patient Instructions/Handouts: Moderate Sedation (DC), Pacemaker Generator Change (DC) Activity/Diet/Wound Care/Special Instructions: Keep dressing clean and dry You can cover dressing with saran or cling wrap prior to shower Do not remove dressing, it will be removed at the office Do not raise right arm above heart level Avoid movements with right arm like backscratching, reaching, pulling, etc You may use the sling as a reminder, you do not have to wear it at all times You may do pendulum exercises to avoid frozen shoulder Discharge Disposition: HOME SELF-CARE
== END 2023-11-09 12:33 | disposition home or self-care (01) ==
LOC: CATHEP 10:11 → 6NMEDSUR 16:50 → CATHEP 11-09 12:33
PROVIDERS: ATTEND Internal Medicine Clinical Cardiac Electrophysiology
CPT/HCPCS: 33228

== ENCOUNTER → 2023-11-15 | Outpatient (CLI) | payer MEDICARE, OTHER ==
--- NOTE | 2023-11-15 10:24 | US ---
EXAMINATION TYPE: US arterial LE single level DATE OF EXAM: 11/15/2023 10:00 AM CLINICAL INDICATION: Female, 83 years old with history of I70.213 ATHS DISEASE I73.9 PUD; History of: Smoker: Current Hypertension: Yes Diabetic: No Hyperlipidemia: Yes TIA/CVA: Yes Previous Vascular Surgery: No IA: Yes Vascular Ulcers: No Claudication: No Gangrene: No Doppler Waveforms: Right: Monophasic Left: Biphasic posterior tibial artery waveforms and monophasic dorsalis pedis artery waveforms. Right Brachial Pressure: 136 Left Brachial Pressure: 138 Ankle-Brachial Indices: Right: 0.80 Left: 1.10 (Vessel hardening > 1.4; Normal 0.9 - 1.4, Moderate 0.7 - 0.9, Severe 0.5-0.7) IMPRESSION: 1. Normal left ankle brachial index. 2. Mild to moderate peripheral arterial vascular disease suggested involving the right distal lower e xtremity. [facility], , 11/15/2023 10:22 AM
== END | disposition home or self-care (01) ==
LOC: RADUSWWP 09:30
PROVIDERS: ATTEND Family Medicine
DX: I70.213 Atherosclerosis of native arteries of extremities with intermittent claudication, bilateral legs (principal)
CPT/HCPCS: 93923

== ENCOUNTER → 2024-06-23 | Outpatient (CLI) | payer MEDICARE, OTHER ==
[2024-06-23 13:10] LABS: Basophils # (A) 0.09 X 10*3/uL (0.00-0.10); Basophils % (A) 0.8 %; Eosinophils # (A) 0.72 X 10*3/uL (0.04-0.35); Eosinophils % (A) 6.7 %; HCT 37.8 % (37.2-46.3); HGB 12.1 g/dL (12.0-15.0); Lymphocytes # (A) 2.49 X 10*3/uL (0.90-5.00); Lymphocytes % (A) 23.2 %; MCH 31.3 pg (27.0-32.0); MCV 97.7 FL (80.0-97.0); Mean Platelet Volume 11.4 FL (9.5-12.2); Monocytes # (A) 0.82 X 10*3/uL (0.20-1.00); Monocytes % (A) 7.6 %; NRBC Per 100 WBC 0 X 10*3/uL (0.00-0.01); Neutrophils # (A) 6.59 X 10*3/uL (1.80-7.70); Neutrophils % (A) 61.3 %; Platelet Count 189 X 10*3/uL (140-440); RBC 3.87 X 10*6/uL (4.10-5.20); WBC 10.75 X 10*3/uL (4.50-10.00)
[2024-06-23 13:29] LABS: ALT 16 U/L (8-44); AST 24 U/L (13-35); Albumin 3.6 g/dL (3.8-4.9); Alkaline Phosphatase 107 U/L (41-126); BUN/Creat Ratio 13.62 Ratio (12.00-20.00); Blood Urea Nitrogen 10.9 mg/dL (9.0-27.0); Calcium 9.1 mg/dL (8.7-10.3); Carbon Dioxide 27.3 mmol/L (21.6-31.8); Chloride 105 mmol/L (96-109); Chol/HDL Ratio 2.13 Ratio; Globulin 2.4 g/dL (1.6-3.3); Glucose 93 mg/dL (70-110); LDL Cholesterol,Calculated 44.9 mg/dL (0.0-131.0); Magnesium 1.7 mg/dL (1.5-2.4); Potassium 4.9 mmol/L (3.5-5.5); Sodium 140 mmol/L (135-145); T4, Free (Free Thyroxine) 0.99 ng/dL (0.80-1.80); Total Bilirubin 0.4 mg/dL (0.3-1.2)
== END | disposition home or self-care (01) ==
LOC: LABWHC1 09:17
PROVIDERS: ATTEND Family Medicine
DX: Z00.00 Encounter for general adult medical examination without abnormal findings (principal); E03.9 Hypothyroidism, unspecified; E78.5 Hyperlipidemia, unspecified; E83.42 Hypomagnesemia
CPT/HCPCS: 36415; 80053; 80061; 83036; 83735; 84439; 84443; 85025